=== PATIENT | female | born 1945 | race Caucasian/White ===

== ENCOUNTER 2023-11-08 22:12 | Inpatient (IN) | payer MEDICARE, BC, SELFPAY ==
[2023-11-08 19:35] VITALS: BP 164/76
--- NOTE | 2023-11-08 20:09 | ED.GENMED ---
History of Present Illness
General
Chief Complaint: Bowel Problem
Source: patient
Exam Limitations: none
Time Seen by Provider: 11/08/23 19:48
History of Present Illness
History of Present Illness:
This is a 78 year old female that comes in with c/o early bowel obstruction. States that she has had them before and that this moves very fast. States that she started with discomfort around 3pm today. States that she has been nauseated. Patient
dose see the GI specialist here. Denies any fever, chills, chest pain, SOB, vomiting, headache, dizziness, urinary burning.
Past History
Past History
ED Past Medical History: Other (Bowel obstruction, Hemorrhoids, Autoimmune issues, Polymyopathy,)
ED Past Surgical History: Bowel resection (Total proctocolectomy with Ileostomy), Gynecological (left duct incision (patient states that it was not a breast reduction and wants this removed from her chart)), Tonsilectomy (And adenoids) and Other
(Left upper lobectomy, Oral surgery)
Social History
Tobacco: Former smoker
Alcohol: None
Personal: Single
Living: with family
Review of Systems
Review of Systems
All Other Systems: ROS reviewed and negative except as documented in HPI and ROS
Constitutional: Reports no symptoms; Denies fever or chills
EENT: Reports no symptoms
Respiratory: Reports no symptoms; Denies cough or trouble breathing
Cardiac: Reports no symptoms; Denies chest pain
ABD/GI: Reports abdominal pain, nausea and other (Ileostomy); Denies vomiting
: Reports no symptoms; Denies dysuria, frequency or urgency
Musculoskeletal: Reports no symptoms
Skin: Reports no symptoms
Neurological: Reports no symptoms; Denies dizzy or headache
Psychiatric: Reports no symptoms
Phy Exam
General Physical Exam
General Presentation: mild distress
General age: appears stated age
General Skin: warm and dry
General Habitus: elderly
General Mental: alert
General Hydration: dry mucous membranes
ENT Exam
ENT Exam: TM's normal, pharynx normal and neck supple
Eye Exam
Eye Exam: EOMI
Cardiovascular Exam
Cardiovascular Exam: regular rate/rhythm, no edema, no murmur and normal peripheral pulses
Pulmonary Exam
Pulmonary Exam: lungs clear, no respiratory distress, no rales, chest non tender, no crackles, no rhonchi, no wheezing and no cough
Gastrointestinal Exam
Gastrointestinal Exam: soft, no organomegaly, no pulsatile mass, non distended, tender (slight upper abd tenderness. ) and other (Hypoactive bowel sounds)
External Findings: ileostomy (with stool noted)
Musculoskeletal Exam
Musculoskeletal Exam: full ROM and no edema
Skin Exam
Skin Exam: normal color, warm/dry, no rash and no petechia
Psychiatric Exam
Psychiatric Exam: normal mood/affect
Course
Orders/Labs/Results
Orders:
Orders
11/08/23 20:08
0.9% Sodium Chloride 1000 ml [Nss] 1,000 ml IV BOLUS
Chest (PA) Obstruct Series [CR Obstruct Series W/pa Chest] Urgent
Comment: hISTORY OF BOWEL OBSTRUCTIONS
Reason For Exam: ABD PAIN
11/08/23 20:14
Complete Blood Count/With Diff Urgent
Comprehensive Metabolic Panel Urgent
Lactic Acid Urgent
Ondansetron Injectable [Zofran] 4 mg IV NOW STA
11/08/23 21:06
Add On- LAB Urgent
Tests Added?: Lipase
Pantoprazole [Protonix IV] 40 mg IV NOW STA
Sucralfate Suspension [Carafate Suspension] 1 gm PO NOW STA
Abnormal Lab Results
11/08/23
20:14
WBC 12.6 H 10^3/uL
(4.8-10.8)
RBC 4.19 L 10^6/uL
(4.20-5.40)
Hct 35.6 L %
(37.0-47.0)
Absolute Neuts (auto) 10.8 H 10^3/uL
(1.4-6.5)
Absolute Lymphs (auto) 1.1 L 10^3/uL
(1.2-3.4)
Neutrophils % 86.1 H %
(42.2-75.2)
Lymphocytes % 8.8 L %
(20.5-51.1)
Sodium 129 L mmol/L
(135-145)
Chloride 95 L mmol/L
(98-107)
Glucose 128 H mg/dl
(70-99)
11/08/23 20:14
11/08/23 20:14
Leukocytosis, Hyponatremia. chloride low. glucose nonfasting. Lactic acid normal at 1.2
Vital Signs
Initial and Last Documented VS:
Initial Vital Signs
Temp Pulse Resp BP Pulse Ox
98.8 F 90 24 164/76 100
11/08/23 19:35 11/08/23 19:35 11/08/23 19:35 11/08/23 19:35 11/08/23 19:35
Last Documented Vital Signs
Temp Pulse Resp BP Pulse Ox
98.8 F 90 24 164/76 100
11/08/23 19:35 11/08/23 19:35 11/08/23 19:35 11/08/23 19:35 11/08/23 19:35
MDM/Problems Addressed
Differential Diagnosis Includes:
Bowel obstruction
MDM/Problems Addressed:
This is a 78 year old female that comes in with c/o early bowel obstruction. states that this started today around 3pm. States that she has a GI specialist here and that he knows her very well and would like him notified. Explained to patient that
he may not be on duty. She would like him notified as some point.
Will check labs. Obstruction series.
back into see patient. Explained that her X-ray shows an Ileus but at this time there is no obstruction. Patient has inducated that she becomes obstructed very fast. will admit. Hospitalist notified.
Chronic conditions affecting care: Previous abdomnial surgery
Acute Exacerbation and/or Progression of Chronic Illness: Previous abdomnial surgery
*Radiology
Radiology exam reviewed: radiology read reviewed (No acute cardiopulmonary process. Findings suggesting ileus, less likely developing small bowel obstruction. )
*Pulse Oximetry
Patient hypoxic: no
*EKG
Interpreted by ED Provider?: NA
Rate: EKG- N/A
*Reconstructive Surgeon Interpretation
Rate: Reconstructive Surgeon- N/A
*Critical Care Note
Total Time (30-74mins, 75-104mins- exclusive of procedures): Not Applicable
ED Attending Note
-
Portions of this chart may have been created with voice recognition software.� Occasional wrong word or��sound alike� substitutions may have occurred due to the inherent limitations of voice recognition software.
Discharge Plan
Departure
Patient Disposition: Admit
Date of Disposition: 11/08/23
Time of Disposition: 21:12
Presentation/result/management discussed w/ accepting MD/DO: Hospitalist
Patient with high blood pressure during this ER visit?: Yes
Condition: Good
Covid-19: Not Applicable
Discharge Problem:
Abdominal pain, Ileus
Referrals:
Dakotah Hines MD [Family Provider] -
Interventions
Interventions:
*Risk Screen - Suicide Last Done: 11/08/23 19:35
*General Assessment Last Done: 11/08/23 20:16
*Neglect/Abuse Screening Last Done: 11/08/23 19:35
ED- Fall Risk Assessment Last Done: 11/08/23 21:04
*ED COVID-19 Vaccine History Last Done: 11/08/23 20:16
RH-Zosqkh-Oskptbshkt Assessment Last Done: 11/08/23 21:03
Discharge Date and Time
Print Language: PERSIAN
[2023-11-08 20:15] VITALS: BMI 22.9
[2023-11-08 20:23] LABS: % Basophils 0.2 % (0-2); % Eosinophils 0.5 % (0-6); % Immature Granulocytes 0.3 % (0-0.5); % Lymphocytes 8.8 % (20.5-51.1); % Monocytes 4.1 % (1.7-9.3); % Neutrophils 86.1 % (42.2-75.2); Absolute Eosinophils 0.1 10^3/uL (0-0.7); Absolute Lymphocytes 1.1 10^3/uL (1.2-3.4); Absolute Monocytes 0.5 10^3/uL (0.1-0.6); Absolute Neutrophils 10.8 10^3/uL (1.4-6.5); Hematocrit 35.6 % (37.0-47.0); Hemoglobin 12.6 g/dL (12.0-16.0); Mean Corp Hgb Conc. 35.4 g/dL (33.0-37.0); Mean Corpuscular Hgb 30.1 pg (27.0-31.0); Mean Platelet Volume 9.8 fL (7.4-10.4); Nucleated Red Blood Cells % 0 %; Platelet Count 250 10^3/uL (130-400); Red Blood Cell Count 4.19 10^6/uL (4.20-5.40); Red Cell Dist. Width 13.1 % (11.5-14.5); White Blood Cell Count 12.6 10^3/uL (4.8-10.8)
[2023-11-08 20:37] LABS: ALT (SGPT) 21 U/L (0-35); AST (SGOT) 28 U/L (14-36); Albumin 4.1 g/dl (3.5-5.0); Alkaline Phosphatase 99 U/L (38-126); Blood Urea Nitrogen 15 mg/dl (7-17); Calcium 10.1 mg/dl (8.4-10.2); Carbon Dioxide 27 mmol/L (22-30); Chloride 95 mmol/L (98-107); Estimated Creatinine Clearance 56 ml/min; Glucose 128 mg/dl (70-99); Lactic Acid 1.2 mmol/L (0.7-2.0); Potassium 3.8 mmol/L (3.5-5.1); Sodium 129 mmol/L (135-145); Total Bilirubin 0.6 mg/dl (0.2-1.3); Total Protein 7.6 g/dl (6.3-8.2); eGFR > 60.00
[2023-11-08] MEDS: ZOFRAN 4 MG IV (20:50)
[2023-11-08] MEDS: NSS 1000 IV (20:50)
[2023-11-08] MEDS: CARAFATE SUSPENSION 1 GM PO (21:09)
[2023-11-08] MEDS: PROTONIX IV 40 MG IV (21:09)
[2023-11-08 21:15] VITALS: BP 148/71
--- NOTE | 2023-11-08 21:24 | HPS.HSE ---
Family Physician
-
Family Physician: Dakotah Hines
Chief Complaint
-
Abdominal pain
History of Present Illness
78-year-old female complaining of abdominal discomfort starting at 3 PM today along with nausea. She has had previous history of bowel obstructions requiring colectomy with ileostomy in 1984 secondary to ulcerative colitis surgery was at [facility]
General. She reports this feels the same as her prior bowel obstructions she reports over 100. She believes that cooked yellow or orange carrots, squash or beets tend to cause her bowel obstruction. Patient reports she feels very anxious when
this happens and is amendable to IV Ativan. She denies headache, sore throat, fever, chills, chest pain, shortness breath, cough, vomiting, diarrhea, urinary symptoms. She has past medical history of bowel obstruction, hemorrhoids, former smoker,
Belgica's thyroiditis
Medical History
Past Medical History
Past Medical History: Reports Other
Additional Past Medical History:
bowel obstruction patient reports over 100 times
hemorrhoids
former smoker
Belgica's thyroiditis
History ulcerative colitis 1984
Past Surgical History: Reports Other
Additional Past Surgical History:
Total proctocolectomy with ileostomy 1984 secondary to ulcerative colitis at [facility]
Tonsillectomy/adenoidectomy
Left upper lobectomy
Social History
Tobacco: Former Smoker
Alcohol: None
Personal: Other (person Chris present with patient unclear relationship to patient as she will not state)
Family History
Family History: Other (Maternal great grandfather ulcerative colitis, paternal cousins ulcerative colitis)
Allergies / Home Medications
Allergies reflects when Allergies were last updated in [facility].
Home Medications with original date entered in [facility]
Allergy/Medication List:
Allergies
Allergy/AdvReac Type Severity Reaction Status Date / Time
Iodinated Contrast Media Allergy Unknown Verified 11/08/23 19:43
latex Allergy Unknown Verified 11/08/23 19:43
levofloxacin [From Levaquin] Allergy Unknown Verified 11/08/23 19:43
nickel Allergy Unknown Verified 11/08/23 19:43
Sulfa (Sulfonamide Allergy Unknown Verified 11/08/23 19:43
Antibiotics)
sulfamethoxazole Allergy Unknown Verified 11/08/23 19:43
[From Bactrim]
trimethoprim [From Bactrim] Allergy Unknown Verified 11/08/23 19:43
Home Medications
CoQ-10 1 tab PO DAILY 11/08/23
Mylanta 1 dose PO PRN PRN acid reflux 11/08/23
Tums 1 tab PO PRN PRN acid reflux 11/08/23
Vitamin D3 4,000 mcg PO DAILY 11/08/23
ascorbic acid (vitamin C) 500 mg tablet (Vitamin C) 500 mg PO DAILY 11/08/23
levothyroxine 88 mcg tablet (Synthroid) 68.5 mcg PO DAILY 11/08/23
omega-3 fatty acids 1 cap PO DAILY 11/08/23
vitamin B complex 1 tab PO DAILY 11/08/23
Review of Systems
-
History Source: Patient and Family (Person Chris at bedside patient will not state relationship)
A 12 point ROS was completed and negative except as noted: Yes
Constitutional: Denies Fever or Chills
EENT: Denies Sore Throat or Runny Nose
Respiratory: Denies Cough or Trouble Breathing
Cardiac: Denies Chest Pain
Abdomen/GI: Reports Abdominal Pain, Nausea and Other (Brown liquid stool in ostomy pouch); Denies Vomiting
: Denies Dysuria, Flank Pain or Urgency
Musculoskeletal: Denies Joint Pain or Edema
Skin: Denies Itching or Rash
Neurological: Denies Dizzy or Headache
Endocrine: Reports No Symptoms
Hematologic/Lymphatic: Reports No Symptoms
Psych: Reports Anxiety
Physical Exam
Vital Signs
Vital Signs
Temp Pulse Resp BP Pulse Ox
98.8 F 72 18 148/71 98
11/08/23 19:35 11/08/23 21:15 11/08/23 21:15 11/08/23 21:15 11/08/23 21:15
Physical Exam
General: Pain and Other (Anxious); No Fever or Chills
HEENT: NormoCephalic, Anicteric, Moist mucous membranes, PERRLA, [place] Conjunctivae and No Ptosis
Respiratory: Clear; No Wheezes, Rales or Rhonchi
Cardiac: S1/S2 and Regular Rhythm; No Murmur, Rub, Gallop or Peripheral Edema
GI: Soft, Normal Bowel Sounds, Tender (Epigastric area), No Hepatosplenomegaly and Other (Ileostomy bag with liquid brown stool present)
Rectal: Deferred by Provider
Genito-urinary: Deferred by me
Musculoskeletal: No Clubbing, No Cyanosis and No Edema
Skin: Warm and Dry; No Rash or Jaundice
Neuro: AO x 3, No Motor Deficits, Nonfocal/grossly intact, Cranial Nerves Intact and No Sensory Deficits; No Slurred Speech, Facial Droop or Tremors
Psych: Anxious
Laboratory Results
-
11/08/23 20:14
11/08/23 20:14
Laboratory Results
Lactic Acid 1.2 mmol/L (0.7-2.0) 11/08/23 20:14
Total Bilirubin 0.6 mg/dl (0.2-1.3) 11/08/23 20:14
AST 28 U/L (14-36) 11/08/23 20:14
ALT 21 U/L (0-35) 11/08/23 20:14
Alkaline Phosphatase 99 U/L (38-126) 11/08/23 20:14
Data Reviewed
-
Diagnostic Radiology: Report Reviewed by me
Lab Data: Labs Reviewed by me
Impression/Plan
-
Impression/plan:
Admit to [facility]
#Abdominal pain with ileus
#Hx SBO/Total proctocolectomy with ileostomy
WBC 12.6 with left shift, afebrile, 90 8.8F
-Monitor bowel movements
-N.p.o.
-IV NSS
-IV Zofran as needed
-KUB in a.m.
-Consult GI per patient demand/request
-Consult general surgery
Follow CBC, CMP
#Acute anxiety
IV Ativan 0.5 mg now as needed every 8 hours
Obstruction series:
Findings suggesting ileus less likely developing SBO
No acute cardiopulmonary process
#Hyponatremia hypovolemic
NA 129
Check TSH with free T4
IV NSS
#Hypothyroidism
#History of Belgica's thyroiditis
Check TSH with free T4 reflex
DVT prophylaxis
SCDs
Full code
[2023-11-08 21:45] LABS: Lipase 59 U/L (23-300); Magnesium 1.8 mg/dl (1.6-2.3)
--- NOTE | 2023-11-08 21:50 | W.PN.UPDATE ---
Update Note
Progress Note Update
This note serves as an addendum to the H&P by industrial machine operator RUFINA Lilly MERCADO
HPI
78F former smoker HX bowel obstructions requiring colectomy with ileostomy., HX autoimmune disease, polymyopathy, Belgica's thyroiditis seen at ER for evalaution of ing of abdominal discomfort
- acute onset at 3 PM , associated with nausea.
- feels the same as her prior bowel obstructions. S
- denies vomiting
- HX BWO about 100 episodes
- HX UC
- very vague about ileostomy output - currently liquid bround output
Hemodynamically stable
PE
Gen: anxious
HEENT: anicteric
Neck: supple
Lungs: CTA
Cor: RRR S1 S2
Abdomen: Ileostomy , currently liquid brown output, hyperactibve BS
LINER MACHINE OPERATOR HELPER: anxious
MS: no edema
Psych: anxious , fine tremors
Data;
WCC 12.6
Na 129
Cl 95
eGFR > 60
Obstruction series:
Findings suggesting ileus less likely developing SBO
No acute cardiopulmonary process
ASSESSMENT & PLAN
Pending Rx reconciliation
Ileus with evolving recurrent SBO
HX adhesive etiology
Asso. abdominal pain and nausea . No emesis
HX SBO/Total proctocolectomy with [place] [facility]
HX BWO about 100 episodes
HX UC
- she is very vague about illeiostomy output - currently liquid bround output
- NPO and IVF
- anti emetics
- Flat plate AXR in AM
- GS and GI consult
Hyponatremia, Hypochloremia suspect dehydration
- IV NS
- Check TSH with free T4 reflex, urine NA, Ur Os, Sr Osm
- Trend Na in AM
DVT Px: SCD
Code: Full
IP MS
[2023-11-08] MEDS: NSS (PRESERVATIVE FREE) 0.25 ML IV ×2 (22:16→23:56)
[2023-11-08] MEDS: ATIVAN 0.5 MG IV ×2 (22:16→23:51)
[2023-11-08 22:53] LABS: TSH Reflex To Free T4 0.87 uIU/ml (0.47-4.68)
[2023-11-08 23:00] VITALS: BP 132/65; BMI 23.3
--- NOTE | 2023-11-08 23:50 | PTCARENOTE ---
Pt received from ED at 2245. Pt AAOX3, VSS, and able to walk into room. Pt receptive to room and callbell, but forgetful. Will continue with current plan of care.
[2023-11-08] MEDS: PEPCID 20 MG IV (23:57)
[2023-11-08] MEDS: NSS (PRESERVATIVE FREE) 8 ML IV (23:58)
[2023-11-09] MEDS: NSS 1000 IV ×2 (00:01→08:59)
[2023-11-09] MEDS: ZOFRAN 4 MG IV ×3 (00:09→16:33)
--- NOTE | 2023-11-09 02:45 | PTCARENOTE ---
Pt forgetful, bed alarm applied. Pt threw up on self X2, bed bath given. Pt uncooperative with bed bath and linen change. Pt refused changing of undergarments. Pt offered mesh underwear, pt stated she is allergic and wants to be left alone. Pt
educated on the importance of being clean to prevent skin breakdown. Will continue with current plan.
--- NOTE | 2023-11-09 03:30 | PTCARENOTE ---
Pt vomiting green bile despite IV zofran and compazine. Elysia ARNOLD notified. This nurse asked pt if she would be okay with getting a NGT, pt refused NGT. Pt stated she has never needed that and doesn't need it now. Pt educated on the
benefit of a NGT. Will continue with current plan.
[2023-11-09] MEDS: COMPAZINE 5 MG IV ×2 (03:45→22:36)
[2023-11-09] MEDS: ATIVAN 0.5 MG IV (06:05)
[2023-11-09] MEDS: NSS (PRESERVATIVE FREE) 0.25 ML IV (06:06)
[2023-11-09] MEDS: SYNTHROID PO (06:09)
[2023-11-09 07:20] VITALS: BP 116/59
--- NOTE | 2023-11-09 09:21 | W.PN.HOSP.TC ---
Today's Communication/Plan
-
Start clear liquid diet. IV fluids. GI and surgery eval
Assessment / Plan
Assessment / Plan
Physical exam:
General: Well Developed, Well Nourished and No Apparent Distress
HEENT: Normocephalic, Atraumatic and Moist Mucous Membranes
Respiratory: Clear to Auscultation; Negative Wheezes, Rales or Rhonchi
Cardiac: Regular Rhythm and S1/S2
GI: Soft, bowel sounds present, mild tender, ostomy in place, and Nondistended
Musculoskeletal: No Clubbing, No Cyanosis and No Edema
Neuro: Awake, Alert and Oriented, no neuro-deficits
Psych: Calm
A/P:
Ileus versus small bowel obstruction/proctocolectomy with ileostomy:
Started clear liquid diet per surgery
Surgery consult not uploaded yet
Continue IV fluids but decrease rate
GI consulted (follows up with Dr. Espinosa as outpatient)-->awaiting input
Seen follow-up x-ray
PT OT eval
Leukocytosis:
Likely reactive
Continue to monitor trend
Hyponatremia:
Likely hypovolemic
NA 129--> 133
Continue to monitor
Hypothyroidism:
Continue thyroid replacement
TSH 0.87
Anxiety:
Started on scheduled/standing doses of IV Ativan. Discontinue IV Ativan.
Can add low-dose Xanax as needed
DVT prophylaxis:
SCDs
CODE STATUS:
Full code
Anticipated Discharge: 24 - 48 hours
Subjective/Interval History
-
Date of Service: November 09, 2023
Patient denies abdominal pain. Feels nauseous. Afebrile
Objective Data
-
Labs:
Laboratory Results
11/09/23
06:00
WBC Pending
Hgb Pending
Hct Pending
Plt Count Pending
Sodium Pending
Potassium Pending
Chloride Pending
Carbon Dioxide Pending
BUN Pending
Creatinine Pending
Glucose Pending
Calcium Pending
Total Bilirubin Pending
AST Pending
ALT Pending
Alkaline Phosphatase Pending
Vital Signs:
Vital Signs
Temp Pulse Resp BP Pulse Ox
99 F 81 16 116/59 97
11/09/23 07:20 11/09/23 07:20 11/09/23 07:20 11/09/23 07:20 11/09/23 07:20
I&O
11/08/23 11/09/23 11/10/23
06:59 06:59 06:59
Intake Total 500 / 500
Balance 500 / 500
[2023-11-09 11:47] LABS: % Basophils 0.2 % (0-2); % Immature Granulocytes 0.1 % (0-0.5); % Lymphocytes 2.9 % (20.5-51.1); % Monocytes 5.5 % (1.7-9.3); % Neutrophils 91.3 % (42.2-75.2); Absolute Lymphocytes 0.4 10^3/uL (1.2-3.4); Absolute Monocytes 0.8 10^3/uL (0.1-0.6); Absolute Neutrophils 13.1 10^3/uL (1.4-6.5); Hematocrit 35.8 % (37.0-47.0); Hemoglobin 12.5 g/dL (12.0-16.0); Mean Corp Hgb Conc. 34.9 g/dL (33.0-37.0); Mean Corpuscular Volume 85.9 fL (81.0-99.0); Mean Platelet Volume 10.1 fL (7.4-10.4); Nucleated Red Blood Cells % 0 %; Platelet Count 245 10^3/uL (130-400); Red Blood Cell Count 4.17 10^6/uL (4.20-5.40); Red Cell Dist. Width 13.2 % (11.5-14.5); White Blood Cell Count 14.3 10^3/uL (4.8-10.8)
[2023-11-09 12:05] LABS: ALT (SGPT) 18 U/L (0-35); AST (SGOT) 24 U/L (14-36); Albumin 3.6 g/dl (3.5-5.0); Alkaline Phosphatase 85 U/L (38-126); Blood Urea Nitrogen 13 mg/dl (7-17); Calcium 9.4 mg/dl (8.4-10.2); Carbon Dioxide 20 mmol/L (22-30); Chloride 103 mmol/L (98-107); Estimated Creatinine Clearance 54 ml/min; Glucose 123 mg/dl (70-99); Potassium 3.8 mmol/L (3.5-5.1); Sodium 133 mmol/L (135-145); Total Bilirubin 1.1 mg/dl (0.2-1.3); Total Protein 6.8 g/dl (6.3-8.2); eGFR > 60.00
[2023-11-09 12:37] VITALS: PULSE 83; O2SAT 100
[2023-11-09 12:45] VITALS: BP 144/70; PULSE 77; O2SAT 100
--- NOTE | 2023-11-09 13:05 | CON.GS ---
Medical History
-
Chief Complaint: abdominal pain
History of Present Illness:
Ms Thorne is a 78 yo female with a h/o of UC with colectomy and ileostomy in 1984 with reported history of multiple bowel obstructions previously. Unclear how many of these she has needed surgery for. She reports that she has had 100 SBO's and
usually goes to [facility] for management and would like to go there if surgery is required. Yesterday, she notes that she ate some carrots and a few hours after began having pain in her abdomen similar to prior obstructions. She developed nausea with
vomiting causing her to present to the ED. She notes some intermittent nausea and some episodes of vomiting earlier today but feeling a little better. There is some flatus/stool noted in her ostomy appliance with a pink and viable stoma present. She
denies active pain but does note discomfort which comes and goes. Non-tender on exam but with some distention noted.
Past Medical History
Past Medical History: Hyperthyroidism (hashimotos) and Other (UC, SBO x100 (reported))
Past Surgical History: Bowel Resection (Colectomy with ileostomy creation 1984, ?ex lap for DEBORAH previously) and Tonsilectomy
Social History
Tobacco: Former Smoker
Alcohol: None
Family History
Family History: Reviewed & Not Pertinent
Allergies / Home Medications
Allergy/AdvReac Type Severity Reaction Status Date / Time
Iodinated Contrast Media Allergy Unknown Verified 11/08/23 19:43
latex Allergy Unknown Verified 11/08/23 19:43
levofloxacin [From Levaquin] Allergy Unknown Verified 11/08/23 19:43
nickel Allergy Unknown Verified 11/08/23 19:43
Sulfa (Sulfonamide Allergy Unknown Verified 11/08/23 19:43
Antibiotics)
sulfamethoxazole Allergy Unknown Verified 11/08/23 19:43
[From Bactrim]
trimethoprim [From Bactrim] Allergy Unknown Verified 11/08/23 19:43
�Medication �Instructions �Recorded �Confirmed �Type
CoQ-10 1 tab PO DAILY Supplement 11/08/23 11/08/23 History
Mylanta 1 dose PO PRN PRN acid reflux 11/08/23 11/08/23 History
Tums 1 tab PO PRN PRN acid reflux 11/08/23 11/08/23 History
Vitamin D3 4,000 mcg PO DAILY Supplement 11/08/23 11/08/23 History
ascorbic acid (vitamin C) 500 mg 500 mg PO DAILY Supplement 11/08/23 11/08/23 History
tablet (Vitamin C)
levothyroxine 88 mcg tablet 68.5 mcg PO DAILY Thyroid 11/08/23 11/08/23 History
(Synthroid)
omega-3 fatty acids 1 cap PO DAILY 11/08/23 11/08/23 History
vitamin B complex 1 tab PO DAILY Supplement 11/08/23 11/08/23 History
Review of Systems
-
History Source: Patient
All other systems: Negative unless noted
A 10 point review of systems was completed, and was negative except as per HPI.
Physical Exam
Vital Signs
Temp Pulse Resp BP Pulse Ox
99 F 81 16 116/59 97
11/09/23 07:20 11/09/23 07:20 11/09/23 07:20 11/09/23 07:20 11/09/23 07:20
11/08/23 11/09/23 11/10/23
06:59 06:59 06:59
Actual Weight 52.345 kg
Body Mass Index (BMI) 23.3
Lab Results
11/09/23 10:47
11/09/23 10:47
WBC 14.3 10^3/uL (4.8-10.8) H 11/09/23 10:47
Hgb 12.5 g/dL (12.0-16.0) 11/09/23 10:47
Hct 35.8 % (37.0-47.0) L 11/09/23 10:47
Plt Count 245 10^3/uL (130-400) 11/09/23 10:47
Abs Immat Gran (auto) 0.0 10^3/uL (0-0.05) 11/09/23 10:47
Neutrophils % 91.3 % (42.2-75.2) H 11/09/23 10:47
Physical Exam
General: Well Developed and Well Nourished
HEENT: Normocephalic and Moist Mucous Membranes
Respiratory: Non Labored Respirations
GI: Soft, Non Tender, Distended (mild) and Other (Stoma pink/viable with small amount of stool and some air in appliance)
Skin: Warm and Dry
Neuro: Awake, Alert and AO x 3
Psych: Calm
Assessment / Plan
-
78 yo female with a h/o of UC with colectomy and ileostomy in 1984 with reported history of multiple bowel obstructions previously. Unclear how many of these she has needed surgery for. She reports that she has had 100 SBO's. Yesterday, she
developed n/v/abdominal pain similar to prior episodes causing her to present for evaluation. She reports that she is feeling a little better now and would like to try clears. Abdominal XR consistent with SBO. AFVSS. Some mild leukocytosis noted.
--Recommend CT with PO contrast, however, patient refusing this test at this time
--OK for clear liquids as tolerated
--If N/V persists, would recommend NGT
--IVF until tolerating clears
--Trend labs
--Patient would like to be transferred to [facility] if she requires surgery. At this time would continue to follow for improvement with medical measures
[2023-11-09 15:09] VITALS: BP 124/64
--- NOTE | 2023-11-09 15:47 | CON.GI ---
Consultation
-
Date/Time Consultation Requested: 11/08/2023
Date/Time Consultation Performed: 11/09/2023
Requesting Provider: Hospitalist
Performing Provider: Nitza GARZA
Reason for Consultation: Ileus
Medical History
Chief Complaint / HPI
Chief Complaint: Abdominal pain
History of Present Illness:
78-year-old female with history of UC s/p colectomy and ileostomy in 1984, multiple small bowel obstruction in the past -managed conservatively in general in the past-follows up with Dr. Jesús KAY admitted with abdominal pain after eating carrots
yesterday associated with nausea/vomiting. She is overall feeling better with some abdominal discomfort and nausea. Continues to have ostomy output.
Past Medical History
Past Medical History: Other (Belgica's, UC, SBO)
Past Surgical History: Other (Colectomy with ileostomy)
Social History
Tobacco: Former Smoker
Alcohol: None
Allergies / Home Medications
Allergy/AdvReac Type Severity Reaction Status Date / Time
Iodinated Contrast Media Allergy Unknown Verified 11/08/23 19:43
latex Allergy Unknown Verified 11/08/23 19:43
levofloxacin [From Levaquin] Allergy Unknown Verified 11/08/23 19:43
nickel Allergy Unknown Verified 11/08/23 19:43
Sulfa (Sulfonamide Allergy Unknown Verified 11/08/23 19:43
Antibiotics)
sulfamethoxazole Allergy Unknown Verified 11/08/23 19:43
[From Bactrim]
trimethoprim [From Bactrim] Allergy Unknown Verified 11/08/23 19:43
�Medication �Instructions �Recorded
CoQ-10 1 tab PO DAILY Supplement 11/08/23
Mylanta 1 dose PO PRN PRN acid reflux 11/08/23
Tums 1 tab PO PRN PRN acid reflux 11/08/23
Vitamin D3 4,000 mcg PO DAILY Supplement 11/08/23
ascorbic acid (vitamin C) 500 mg 500 mg PO DAILY Supplement 11/08/23
tablet (Vitamin C)
levothyroxine 88 mcg tablet 68.5 mcg PO DAILY Thyroid 11/08/23
(Synthroid)
omega-3 fatty acids 1 cap PO DAILY 11/08/23
vitamin B complex 1 tab PO DAILY Supplement 11/08/23
Review of Systems
-
All other systems: A 12 pt ROS was Negative except as stated above in HPI
Vital Signs
Temp Pulse Resp BP Pulse Ox
98.7 F 86 16 124/64 97
11/09/23 15:09 11/09/23 15:09 11/09/23 15:09 11/09/23 15:09 11/09/23 15:09
Physical Exam
Exam
General: No Apparent Distress
Respiratory: Clear
Cardiac: S1/S2
GI: Soft, Non Tender, Non Distended and Other (Ostomy bag - brown stool noted)
Results
WBC 14.3 10^3/uL (4.8-10.8) H 11/09/23 10:47
Hgb 12.5 g/dL (12.0-16.0) 11/09/23 10:47
Hct 35.8 % (37.0-47.0) L 11/09/23 10:47
MCV 85.9 fL (81.0-99.0) 11/09/23 10:47
Plt Count 245 10^3/uL (130-400) 11/09/23 10:47
Absolute Neuts (auto) 13.1 10^3/uL (1.4-6.5) H 11/09/23 10:47
Sodium 133 mmol/L (135-145) L 11/09/23 10:47
Potassium 3.8 mmol/L (3.5-5.1) 11/09/23 10:47
Chloride 103 mmol/L (98-107) 11/09/23 10:47
Carbon Dioxide 20 mmol/L (22-30) L 11/09/23 10:47
BUN 13 mg/dl (7-17) 11/09/23 10:47
Creatinine 0.6 mg/dL (0.6-1.0) 11/09/23 10:47
Calcium 9.4 mg/dl (8.4-10.2) 11/09/23 10:47
Total Bilirubin 1.1 mg/dl (0.2-1.3) 11/09/23 10:47
AST 24 U/L (14-36) 11/09/23 10:47
ALT 18 U/L (0-35) 11/09/23 10:47
Alkaline Phosphatase 85 U/L (38-126) 11/09/23 10:47
Lipase 59 U/L (23-300) 11/08/23 20:14
Diagnostic Image Results:
Prior GI Procedures:
EGD: Unable to recall
Colonoscopy: History of colectomy with end ileostomy 1984
Assessment / Plan
-
78-year-old female with history of UC status post colectomy with end ileostomy in 1984 with recurrent small bowel obstruction admitted with abdominal pain/nausea/vomiting. Abdominal x-ray performed in ED suggestive of ileus versus partial small
bowel obstruction (allergy to IV contrast). Repeat X ray this am -progression of ileus/developing small bowel obstruction
-- Recurrent SBO
-- History of UC s/p total colectomy with end ileostomy
plan
NPO
Patient refusing CT abdomen with oral contrast recommended by surgery
Patient denies any emesis. Does not want NG tube.
Surgery on board. Continue to follow surgical recommendation
Patient would like to be transferred to [facility] if surgical intervention necessary
Follow-up with Dr. Espinosa on discharge. No further GI input. will s/o
Total Time Spent with Patient (in minutes): 55
-
-
Thank you for consultation and allowing me to participate in the patient's care. Please call the bonus clerk GI physician during the after hours with any questions or concerns.
--- NOTE | 2023-11-09 15:51 | CM ---
Patient seen bedside.
IA completed.
Patient lives in a 2nd floor apartment, no elevator.
No assistive devices.
Independent prior to admission.
Hx ileostomy.
Patient has a RORO- Janie Helm
PCP; Dr Hines
Pharmacy: [facility]
Plan: home no needs anticipated.
[2023-11-09] MEDS: XANAX 0.25 MG PO (16:34)
[2023-11-09 23:07] VITALS: BP 139/72
[2023-11-10] MEDS: NSS 1000 IV ×3 (02:49→23:18)
[2023-11-10 07:00] VITALS: BP 155/85
--- NOTE | 2023-11-10 08:11 | W.PN.HOSP.TC ---
Addendum entered and electronically signed by Igor Dennis MD 11/10/23 15:02:
Chest x-ray consistent with pneumonia. Start IV antibiotics. Patient requests pulm consult.
I was able to reach Janie Mireles who is listed as her power of attorney lawyer and she will also try to talk to her about current plans and possible CT abd. Will discuss with patient.
Addendum entered and electronically signed by Igor Dennis MD 11/10/23 13:21:
Not Dr Moulton rather discused Dr Altamirano from liver services.
Original Note:
Today's Communication/Plan
-
IV fluids. Chest x-ray. Possible CT scan of the abdomen.
Assessment / Plan
Assessment / Plan
Physical exam:
General: Acute on chronically ill
HEENT: Normocephalic, Atraumatic and Moist Mucous Membranes
Respiratory: Clear to Auscultation; Negative Wheezes, Rales or Rhonchi
Cardiac: Regular Rhythm and S1/S2
GI: Soft, bowel sounds present but relatively hypoactive, mild tender, ostomy in place, and Nondistended
Musculoskeletal: No Clubbing, No Cyanosis and No Edema
Neuro: Awake, Alert and Oriented, no neuro-deficits
Psych: Calm
A/P:
Ileus versus small bowel obstruction/proctocolectomy with ileostomy:
Started clear liquid diet per surgery but it appears that they are signing off
Continue IV fluids but decrease rate
GI consulted (follows up with Dr. Espinosa as outpatient)--> GI also signed off.
Seen follow-up x-ray
PT OT eval
I reached out to [facility] for possible transfer today. Discussed with Dr. Moulton-liver specialist who is following her and he recommended to discuss with other surgeons. I discussed with Dr. Vasquez, general surgeon who recommends to discuss with
colorectal surgery who is following her. I discussed with Dr. Hidalgo-and she does recommend to go ahead and do the CT scan with contrast otherwise that would be the same thing today with different transfer and also is not clear that she would
require surgery at the moment. Will discuss with patient again to see if further images can be completed.
Cough with sputum:
Rule out pneumonia
Check a chest x-ray PA and lateral
Check sputum culture
Hold off on antibiotics
Leukocytosis:
Likely reactive
Continue to monitor trend
Hyponatremia:
Likely hypovolemic
NA 129--> 133
Continue to monitor
Hypothyroidism:
Continue thyroid replacement
TSH 0.87
Anxiety:
Started on scheduled/standing doses of IV Ativan. Discontinue IV Ativan.
Can add low-dose Xanax as needed
DVT prophylaxis:
SCDs
CODE STATUS:
Full code
Total time spent on today's encounter was 52 minutes which included time spent in counseling the patient/family regarding diagnosis and treatment plan as listed above, goals of care, and symptom management. Case was discussed with nursing staff,
specialists, and care coordinators/case management. All labs and imaging personally reviewed by me. Remainder the time spent in detailed review of previous records, lab data, imaging, and other medical provider documentation.
Anticipated Discharge: > 48 hours
Subjective/Interval History
-
Date of Service: November 10, 2023
Patient appears to have some output from ostomy. She says she does not have appetite. Some abdominal discomfort. Complains of cough with sputum production.
Objective Data
-
Labs:
Laboratory Results
11/10/23
06:00
WBC Pending
Hgb Pending
Hct Pending
Plt Count Pending
Sodium Pending
Potassium Pending
Chloride Pending
Carbon Dioxide Pending
BUN Pending
Creatinine Pending
Glucose Pending
Calcium Pending
Vital Signs:
Vital Signs
Temp Pulse Resp BP Pulse Ox
100.1 F 109 14 155/85 94
11/10/23 07:00 11/10/23 07:00 11/10/23 07:00 11/10/23 07:00 11/10/23 07:00
I&O
11/09/23 11/10/23 11/11/23
06:59 06:59 06:59
Intake Total 500 / 500 660 / 660
Balance 500 / 500 660 / 660
[2023-11-10] MEDS: SYNTHROID 68.5 MCG PO (09:20)
[2023-11-10 11:33] LABS: Procalcitonin 0.41 ng/ml (0.0-0.25)
[2023-11-10 11:41] LABS: Hematocrit 37.4 % (37.0-47.0); Hemoglobin 12.9 g/dL (12.0-16.0); Mean Corp Hgb Conc. 34.5 g/dL (33.0-37.0); Mean Corpuscular Hgb 30.9 pg (27.0-31.0); Mean Corpuscular Volume 89.5 fL (81.0-99.0); Mean Platelet Volume 10.2 fL (7.4-10.4); Platelet Count 231 10^3/uL (130-400); Red Blood Cell Count 4.18 10^6/uL (4.20-5.40); Red Cell Dist. Width 13.2 % (11.5-14.5); White Blood Cell Count 11.7 10^3/uL (4.8-10.8)
[2023-11-10 11:43] LABS: Absolute Neutrophils -Man Diff 10.4 10^3/uL (1.4-6.5); Band Neutrophils 26 % (0-3); Lymphocytes 8 % (20-51); Monocytes 3 % (2-9); Segmented Neutrophils 63 % (42-75)
--- NOTE | 2023-11-10 11:43 | W.PN.UPDATE ---
Update Note
Progress Note Update
S/B: Went with Dr. Sanchez to evaluate patient this am. She states that if surgery is required, she will only have this done at [facility]. Discussed with patient that surgical team following here at in the setting of SBO to assist with care, dietary
advancements etc. Assured her that if surgery deemed necessary, transfer could be arranged as per her wishes. She notes concerns that surgery team would be billing for her care and asked that she not be evaluated by our service at all during her
course of stay. She refused abdominal exam and did not wish to discuss her symptoms or progress.
A: Surgery to sign off at patient request, please call if concerns questions or patient requesting surgical team to reevaluate.
R: Consider transfer to [facility] if patient does not improve
[2023-11-10 11:44] LABS: Platelets Checked Yes
[2023-11-10 11:45] LABS: Normal RBC Morphology Yes; Total Cells Counted 100
--- NOTE | 2023-11-10 12:03 | CM ---
Patient seen at bedside.
PT recommending home health.
Patient refusing procedures/tx.
PLAN: Discharge when stable. Possible transfer to [facility] if patient per surgery note.
[2023-11-10] MEDS: COMPAZINE 5 MG IV ×2 (12:10→23:42)
[2023-11-10] MEDS: TORADOL 15 MG IV (12:11)
[2023-11-10] MEDS: ZITHROMAX INFUSION 250 IV (14:53)
[2023-11-10 15:00] VITALS: BP 161/85
[2023-11-10 15:24] LABS: Blood Urea Nitrogen 18 mg/dl (7-17); Calcium 9.1 mg/dl (8.4-10.2); Carbon Dioxide 22 mmol/L (22-30); Chloride 101 mmol/L (98-107); Estimated Creatinine Clearance 47 ml/min; Glucose 167 mg/dl (70-99); Potassium 3.4 mmol/L (3.5-5.1); Sodium 135 mmol/L (135-145); eGFR > 60.00
[2023-11-10] MEDS: STERILE WATER FOR INJECTION 10 ML IV (16:23)
[2023-11-10] MEDS: ROCEPHIN 1000 MG IV (16:23)
[2023-11-10] MEDS: XANAX 0.25 MG PO (16:27)
--- NOTE | 2023-11-10 20:33 | W.PN.UPDATE ---
Update Note
Progress Note Update
Notified by RN that pt now refusing to take steroids ordered by attending to prep for ct abd tomorrow Has contrast allergy). Also refuses ct abd as ' she had had over [address] scans in her life and they cause cancer.'
Will update attending in am
--- NOTE | 2023-11-10 22:44 | PTCARENOTE ---
Pt is in for an abdominal and pelvis CT with contrast for tomorrow morning however the pt is allergic to iodine contrast so Dr. Dennis ordered for her to get steroids tonight. When this RN went to give them to her, the pt states that she is allergic
to all steroids (even though this isn't listed in her allergy chart) and that she is refusing to have the steroids and the CT. I informed the pt Dr. Dennis spoke with [facility] today and they were the ones that recommended the CT for her but she is still
refusing the steroids and says she would only have a chest CT without contrast. She states that 'she has had over 25 abdominal CTs in her life and that they cause cancer' and that 'the doctors can look at one of those.' SIGN WRITER LETTERER OR PAINTER aware of pt refusal of
medication and CT in am. Will continue to monitor
[2023-11-10 23:35] VITALS: BP 148/85
[2023-11-11 01:50] LABS: COVID-19 Antigen Negative (Negative)
--- NOTE | 2023-11-11 06:06 | PTCARENOTE ---
Pt complaining of SOB, pt with new rhonchi to bilateral upper lobes and only 90% on 2L nasal canula. RETAIL SALES REPRESENTATIVE notified and pt O2 increased to 4L nasal canula. RETAIL SALES REPRESENTATIVE ordered PRN nebulizer and covid swab. Covid swab resulted as negative. Pt more comfortable on
4L O2. Will continue to monitor
[2023-11-11 07:50] VITALS: BP 147/83
[2023-11-11] MEDS: SYNTHROID PO (08:10)
[2023-11-11] MEDS: TYLENOL 650 MG PO (08:10)
[2023-11-11 08:44] LABS: Blood Urea Nitrogen 20 mg/dl (7-17); Calcium 9.1 mg/dl (8.4-10.2); Carbon Dioxide 21 mmol/L (22-30); Chloride 101 mmol/L (98-107); Estimated Creatinine Clearance 47 ml/min; Glucose 123 mg/dl (70-99); Hematocrit 36.9 % (37.0-47.0); Hemoglobin 12.7 g/dL (12.0-16.0); Mean Corp Hgb Conc. 34.4 g/dL (33.0-37.0); Mean Corpuscular Hgb 30.8 pg (27.0-31.0); Mean Corpuscular Volume 89.6 fL (81.0-99.0); Mean Platelet Volume 10.2 fL (7.4-10.4); Platelet Count 267 10^3/uL (130-400); Potassium 3.5 mmol/L (3.5-5.1); Red Blood Cell Count 4.12 10^6/uL (4.20-5.40); Red Cell Dist. Width 13.2 % (11.5-14.5); Sodium 132 mmol/L (135-145); White Blood Cell Count 11.9 10^3/uL (4.8-10.8); eGFR > 60.00
[2023-11-11 08:45] LABS: Absolute Neutrophils -Man Diff 9.6 10^3/uL (1.4-6.5); Band Neutrophils 20 % (0-3); Lymphocytes 13 % (20-51); Monocytes 6 % (2-9); Normal RBC Morphology Yes; Platelets Checked Yes; Segmented Neutrophils 61 % (42-75); Total Cells Counted 100
--- NOTE | 2023-11-11 08:47 | W.PN.HOSP.TC ---
Addendum entered and electronically signed by Igor Dennis MD 11/11/23 18:30:
Stop IVF.
Original Note:
Today's Communication/Plan
-
IV antibiotics. Advance diet as tolerated.
Assessment / Plan
Assessment / Plan
Physical exam:
General: Acute on chronically ill
HEENT: Normocephalic, Atraumatic and Moist Mucous Membranes
Respiratory: Decreased breath sounds bilateral; Bilateral scattered wheezes, few fine crackles in the bases, No rhonchi
Cardiac: Regular Rhythm and S1/S2
GI: Soft, bowel sounds present, Non-tender today, ostomy in place, and Nondistended
Musculoskeletal: No Clubbing, No Cyanosis and No Edema
Neuro: Awake, Alert and Oriented, no neuro-deficits
Psych: Calm
A/P:
Ileus versus small bowel obstruction:
Started clear liquid diet per surgery but they signed off
I advanced to full liquid diet last evening and tolerated relatively well and she wants to advance diet today. Will advance to low residue diet today.
Refused CT scan again. Clinically she is doing much better so I think is reasonable to see how she does advancing her diet slowly as she has requested. If she were to have signs of obstruction again then CT scan of the abdomen and or transfer
needs to be discussed again.
Continue IV fluids but decrease rate
GI consulted and they signed off.
I reached out to [place] for possible transfer yesterday. Discussed with Dr. Altamirano-liver specialist who is following her and he recommended to discuss with other surgeons. I discussed with Dr. Vasquez, general surgeon who recommends to discuss
with colorectal surgery who is following her. I discussed with Dr. Hidalgo-and she does recommend to go ahead and do the CT scan with contrast otherwise call again if she would require surgery.
Refused CT scan as above. Follow-up clinically
Updated Janie yesterday, power of fat purification worker
PT OT
Pneumonia:
Started on Rocephin and azithromycin (QTc acceptable on EKG yesterday)
WBC 14.3-->11.9
Sputum culture pending
Pro-Yaakov 0.41
She follows up with pulmonary as outpatient but she wanted to see pulmonary here as inpatient. Pulmonary consulted.
Possible underlying COPD or reactive airway disease-inhaled steroids, monitor respiratory status, she is opposed to systemic steroids.
Ulcerative colitis status post proctocolectomy with ileostomy-stable
Lung cancer-status post left upper lobectomy in 2011
L Pleural effusion-status post thoracentesis in the past
Hyponatremia-sodium 132 today, improved from admission
Hyperglycemia-check hemoglobin A1c in a.m.
Hypothyroidism- cont thyroid replacement, TSH 0.87
Anxiety-started on scheduled/standing doses of IV Ativan. Discontinued IV Ativan. Added low-dose Xanax as needed
DVT prophylaxis-SCDs
CODE STATUS-Full code
Anticipated Discharge: 24 - 48 hours
Subjective/Interval History
-
Date of Service: November 11, 2023
Patient denies abdominal pain, less nausea although she attributes nausea to her respiratory symptoms. Less cough and shortness of breath. Afebrile
Objective Data
-
Labs:
Laboratory Results
11/11/23
07:19
WBC 11.9 H
Hgb 12.7
Hct 36.9 L
Plt Count 267
Sodium 132 L
Potassium 3.5
Chloride 101
Carbon Dioxide 21 L
BUN 20 H
Creatinine 0.7
Glucose 123 H
Calcium 9.1
Vital Signs:
Vital Signs
Temp Pulse Resp BP Pulse Ox
98.4 F 103 18 148/85 95
11/10/23 23:35 11/10/23 23:35 11/10/23 23:35 11/10/23 23:35 11/10/23 23:35
I&O
11/10/23 11/11/23 11/12/23
06:59 06:59 06:59
Intake Total 660 / 660
Output Total 300 / 300
Balance 660 / 660 -300 / -300
--- NOTE | 2023-11-11 09:17 | CON.PUL ---
Consultation
Consultation Request
Date/Time Consultation Requested: 11/11/2023-7:30 AM
Date/Time Consultation Performed: 11/11/2023-8 AM
Requesting Provider: Hospitalist
Performing Provider: Dr. Davalos
Reason for Consultation: Shortness of breath, pneumonia, history lung cancer
Medical History
-
Chief Complaint: Shortness of breath
History of Present Illness:
78-year-old female with a history of lung cancer/left upper lobectomy 2011 followed at [facility] without recurrence, recurrent left pleural effusion status post 2 thoracenteses in the past, bowel obstruction requiring colostomy with ileostomy secondary to
ulcerative colitis 1984 presented with abdominal pain and ileus, hyponatremia noted to have pneumonia and pulmonary was consulted 11/11/2023. She complains of some abdominal pain and pulmonary leon complains of some shortness of breath with
exertion, some mild chest congestion, discolored sputum, wheezing, no increased leg swelling, or focal weakness.
Past Medical History
Past Medical History: None (Lung cancer status post left upper lobectomy [facility] 2011-follows Bin Cee MD-[facility]. Former smoker-quit 1974. Recurrent bowel obstruction. Belgica's thyroiditis. Ulcerative colitis 1984 status post
proctocolectomy with ileostomy-[facility]. Tonsillectomy.)
Social History
Tobacco: Former Smoker (Quit 1974)
Alcohol: None
Drug: None
Occupational Exposures: No known asbestos exposure
Environmental Exposures: No known tuberculosis exposure
Family History
Family History: Other (Maternal great grandfather ulcerative colitis. Paternal cousins ulcerative colitis)
Allergies / Home Medications
Allergies
Allergy/AdvReac Type Severity Reaction Status Date / Time
Iodinated Contrast Media Allergy Unknown Verified 11/08/23 19:43
latex Allergy Unknown Verified 11/08/23 19:43
levofloxacin [From Levaquin] Allergy Unknown Verified 11/08/23 19:43
nickel Allergy Unknown Verified 11/08/23 19:43
Sulfa (Sulfonamide Allergy Unknown Verified 11/08/23 19:43
Antibiotics)
sulfamethoxazole Allergy Unknown Verified 11/08/23 19:43
[From Bactrim]
trimethoprim [From Bactrim] Allergy Unknown Verified 11/08/23 19:43
Home Medications
�Medication �Instructions �Recorded �Confirmed �Last Taken �Type
CoQ-10 1 tab PO DAILY Supplement 11/08/23 11/08/23 11/08/23 History
Mylanta 1 dose PO PRN PRN acid reflux 11/08/23 11/08/23 Unknown History
Tums 1 tab PO PRN PRN acid reflux 11/08/23 11/08/23 Unknown History
Vitamin D3 4,000 mcg PO DAILY Supplement 11/08/23 11/08/23 11/07/23 History
ascorbic acid (vitamin C) 500 mg 500 mg PO DAILY Supplement 11/08/23 11/08/23 11/07/23 History
tablet (Vitamin C)
levothyroxine 88 mcg tablet 68.5 mcg PO DAILY Thyroid 11/08/23 11/08/23 11/08/23 History
(Synthroid)
omega-3 fatty acids 1 cap PO DAILY 11/08/23 11/08/23 11/08/23 History
vitamin B complex 1 tab PO DAILY Supplement 11/08/23 11/08/23 11/07/23 History
Review of Systems
-
Unable to Obtain full review of systems at this time due to: Other (Per HPI)
Vitals / Labs / Diagnostic Testing
Vital Signs
Temp Pulse Resp BP Pulse Ox
98.6 F 106 18 147/83 95
11/11/23 07:50 11/11/23 07:50 11/11/23 07:50 11/11/23 07:50 11/11/23 07:50
Lab Data
11/11/23 07:19
11/11/23 07:19
Microbiology
11/10/23 11:54 Sputum Gram Stain - Preliminary
Diagnostic Testing:
Physical Exam
-
Exam:
Well-nourished and well-developed in no apparent distress
HEENT-atraumatic, normocephalic
Neck-supple, no JVD, no bruit
Heart-regular rate and rhythm-no murmurs, rubs or gallops
Chest with diminished breath sounds, prolonged expiratory time, expiratory wheezes and rhonchi with rare crackles
Abdomen-soft, mildly distended,
Extremities-no cyanosis, clubbing, edema and good peripheral pulses
Integument-intact, no rashes, lesions or ecchymosis
Neurology-alert and oriented, nonfocal motor and sensory exam
Assessment
-
78-year-old female with a history of lung cancer/left upper lobectomy 2011 followed at [facility] without recurrence, recurrent left pleural effusion status post 2 thoracenteses in the past, bowel obstruction requiring colostomy with ileostomy secondary to
ulcerative colitis 1984 presented with abdominal pain and ileus, hyponatremia noted to have pneumonia and pulmonary was consulted 11/11/2023.
Jbzjlwfya-brndvjwvd-enefajai
Leukocytosis-WBC 14.3
Mild hyponatremia
Mild hyperglycemia
Conditions present prior to admission:
Lung cancer status post left upper lobectomy [facility] 2011-follows Bin Cee MD-[facility].
Former smoker-quit 1974.
Recurrent bowel obstruction.
Belgica's thyroiditis.
Ulcerative colitis 1984 status post proctocolectomy with ileostomy-[facility].
Tonsillectomy.
Plan
Respiratory decompensation likely due to pneumonia and exacerbation of underlying reactive airway/obstructive lung disease-significant expiratory wheezing
Supplemental oxygen
Add nebulizers
Add inhaled steroids-states that she reacts 'psychologically' to steroids-explained that inhaled steroids have less than 2% systemic absorption and will be discontinued at for signs of adverse reaction
Aspiration precautions
Check cultures
Sputum culture pending
Ceftriaxone and azithromycin continue
Monitor leukocytosis
GI and surgery was following
Monitor ileus/partial small bowel obstruction
Replace electrolytes
DVT prophylaxis recommended-mechanical if refuses chemical
Nutrition per GI
Outpatient pulmonary cgxgir-xk-smpykco Dr. Bin GrewalOhyhbn-FRM-cafctvht CT chest every 2 years-last one March 2023
Expressed interest in following up locally with pulmonary-will leave name and number
Diagnostic data:
Obstruction series 11/08/2023-no acute cardiopulmonary process, ileus less likely small bowel obstruction
Chest x-ray 11/10/2023-pneumonia within the lingula and/or left lower lobe, small bilateral pleural effusions
Abdominal x-ray 11/09/2023-worsening ileus or developing small bowel obstruction
Data Reviewed
-
EKG: Report reviewed by me
Radiology: Report reviewed by me
Medical Tests (Nuc Med, Echo etc): Report reviewed by me
Old Records: Reviewed
Total Time Spent with Patient (in minutes): 55
[2023-11-11] MEDS: DUONEB 3 ML INH ×3 (11:37→20:08)
--- NOTE | 2023-11-11 12:02 | CM ---
Patient seen at bedside.
PT recommending home health.
CM discussed home health options of agencies.
Patient states will let CM know.
regulatory compliance manager to follow up on home health & place referral.
PLAN: Discharge when stable. PT recommeding home health.
[2023-11-11 15:34] VITALS: BP 150/77
[2023-11-11] MEDS: STERILE WATER FOR INJECTION 10 ML IV (15:44)
[2023-11-11] MEDS: ZITHROMAX INFUSION 250 IV (15:44)
[2023-11-11] MEDS: ROCEPHIN 1000 MG IV (15:44)
[2023-11-11] MEDS: TYLENOL 325 MG PO (16:01)
[2023-11-11] MEDS: PULMICORT 0.5 MG INH (20:08)
--- NOTE | 2023-11-11 20:24 | RESPNOTE ---
pt had a possible reaction to the pulmicort. RN aware. Providers will be told.
[2023-11-11 23:21] VITALS: BP 136/61
--- NOTE | 2023-11-12 03:20 | DOWNTIME ---
There was a [employer] Client Home Support Worker Downtime on 11/12/2023 from 0100 to 11/12/2023 at 0252. Downtime documentation of patient's care, including medication administrations, has been reconciled in the electronic record per guidelines. Refer to the
patient's paper chart under the miscellaneous tab to see printed paper medication records and downtime forms.
[2023-11-12 07:40] VITALS: BP 165/73
[2023-11-12] MEDS: PULMICORT 0.5 MG INH (07:44)
[2023-11-12] MEDS: DUONEB 3 ML INH ×3 (07:44→20:38)
[2023-11-12 08:39] LABS: Blood Urea Nitrogen 9 mg/dl (7-17); Calcium 8.7 mg/dl (8.4-10.2); Carbon Dioxide 19 mmol/L (22-30); Chloride 101 mmol/L (98-107); Estimated Creatinine Clearance 54 ml/min; Glucose 108 mg/dl (70-99); Potassium 3.7 mmol/L (3.5-5.1); Sodium 128 mmol/L (135-145); eGFR > 60.00
--- NOTE | 2023-11-12 08:59 | W.PN.PUL.V3 ---
Today's Communication / Plan
-
Wean oxygen
Mucolytic's
DuoNebs-if allows-'yet not sure if she has side effects'
Discontinue Pulmicort-does not like 'inhaled steroids'
Advance diet per gastroenterology
Assessment
-
78-year-old female with a history of lung cancer/left upper lobectomy 2011 followed at [facility] without recurrence, recurrent left pleural effusion status post 2 thoracenteses in the past, bowel obstruction requiring colostomy with ileostomy secondary to
ulcerative colitis 1984 presented with abdominal pain and ileus, hyponatremia noted to have pneumonia and pulmonary was consulted 11/11/2023.
Meewldvju-cykgxjpio-gecgkrdm
Obstructive lung disease with acute exacerbation
Leukocytosis-WBC 14.3
Mild hyponatremia
Mild hyperglycemia
Conditions present prior to admission:
Lung cancer status post left upper lobectomy [place] 2011-follows Bin Cee MD-[facility].
Former smoker-quit 1974.
Recurrent bowel obstruction.
Belgica's thyroiditis.
Ulcerative colitis 1984 status post proctocolectomy with ileostomy-[facility].
Tonsillectomy.
Plan
Respiratory decompensation likely due to pneumonia and exacerbation of underlying reactive airway/obstructive lung disease-significant expiratory wheezing
Supplemental oxygen-attempt to wean
Assess discharge supplemental oxygen needs prior to discharge
Pulmicort nebulizers-discontinue had reaction-unclear reaction as she could not definitively describe she just did not like it
Continue DuoNebs if she allows-clearly has bronchospasm on exam
Aspiration precautions
Follow radiographically
No need for CT chest at this time unless infiltrates do not clear over time-explained to patient at length
Cultures reviewed
Sputum culture Klebsiella
Ceftriaxone and azithromycin continue-finish finite course-reviewed with patient and nursing
Monitor leukocytosis
GI and surgery was following
Monitor ileus/partial small bowel obstruction
Diet advanced per gastroenterology
Replace electrolytes
DVT prophylaxis recommended-mechanical if refuses chemical
Nutrition per GI
Answered all questions, reviewed pathophysiology of bacterial pneumonia, level of contagiousness, length of therapy needed, follow-up needed, etc.
Reviewed with nursing
Outpatient pulmonary druiuj-xx-qxfwdsw Dr. Bin MorseP-receives CT chest every 2 years-last one March 2023
Diagnostic data:
Obstruction series 11/08/2023-no acute cardiopulmonary process, ileus less likely small bowel obstruction
Chest x-ray 11/10/2023-pneumonia within the lingula and/or left lower lobe, small bilateral pleural effusions
Abdominal x-ray 11/09/2023-worsening ileus or developing small bowel obstruction
Subjective Data
-
Date of Service:
Date of Service: November 12, 2023
Chief Complaint: Pulmonary Follow Up, Dyspnea Follow Up and Pneumonia Follow Up
Subjective:
Sputum color has improved-light yellow now, still has a cough, states she reacted to steroid nebulizer but not sure what it was, no chest pain, pleurisy, abdominal pain improved
Review of Systems
General: Other (Per HPI)
Objective Data
Data Reviewed
Vital Signs / I&O:
Vital Signs
Temp Pulse Resp BP Pulse Ox
98.6 F 79 18 165/73 94
11/12/23 07:40 11/12/23 07:47 11/12/23 07:47 11/12/23 07:40 11/12/23 07:47
Intake and Output
11/11/23 11/12/23 11/13/23
06:59 06:59 06:59
Intake Total 970 / 970
Output Total 300 / 300 1000 / 1000
Balance -300 / -300 -30 / -30
SaO2: 94
Nasal Cannula flow liters per minute: 3
Physical Exam
General: Respiratory Distress (n) and Comfortable
HEENT: Normocephalic, Anicteric and Moist Mucous Membranes
Cardiovascular: Regular Rhythm and Murmur
Respiratory: Wheeze (Expiratory), Crackles (Rare basilar), Rhonchi (n), Non-Labored Respirations, Accessory Resp Muscle Use (n) and Stridor (n)
GI: Soft, Non Distended and Non Tender
Neurology: Awake, Alert and No Motor Deficits
Skin: Warm, Good Color, Cyanosis (n), Jaundice (n) and Rash (n)
Labs/Micro/Reports
Lab Data
11/12/23 07:22
Microbiology
11/10/23 11:54 Sputum Respiratory Culture - Preliminary
Gram negative bacilli
11/10/23 11:54 Sputum Gram Stain - Preliminary
[2023-11-12 09:29] VITALS: BP 138/77; PULSE 105; O2SAT 97
[2023-11-12] MEDS: NON-FORMULARY ITEM PO (09:37)
--- NOTE | 2023-11-12 09:40 | PTCARENOTE ---
Patient was found taking own meds from her purse. RN explained to patient it is not safe. RN asked patient for her pill box and placed in in the patient's med drawer. Patient verbalized understanding that RN will give patient the prescribed
medications.
[2023-11-12 10:07] LABS: Glycohemoglobin (HgbA1c) 5.5 % (4.0-5.6)
--- NOTE | 2023-11-12 11:46 | PTCARENOTE ---
RN educated patient on the 1500 ml fluid restriction. RN explained about low sodium level. Patient states, 'I have an ileostomy. I need to drink extra fluid.'
[2023-11-12] MEDS: DUONEB INH (12:04)
--- NOTE | 2023-11-12 13:58 | W.PN.HOSP.TC ---
Today's Communication/Plan
-
Continue current care
Assessment / Plan
Assessment / Plan
General: Acute on chronically ill
HEENT: Normocephalic, Atraumatic and Moist Mucous Membranes
Respiratory: Decreased breath sounds bilateral; Bilateral scattered wheezes, few fine crackles in the bases, No rhonchi
Cardiac: Regular Rhythm and S1/S2
GI: Soft, bowel sounds present, Non-tender today, ostomy in place, and Nondistended
Musculoskeletal: No Clubbing, No Cyanosis and No Edema
Neuro: Awake, Alert and Oriented, no neuro-deficits
Psych: Calm
Ileus versus small bowel obstruction -improving. Moving bowels in ostomy. Tolerating low residue diet. Complaining of poor appetite.
Community-acquired pneumonia -symptoms improving. Chest x-ray suggestive of lingular and/or left lower lobe pneumonia. Small bilateral pleural effusions. Sputum culture shows Klebsiella. Anticipate discharging on Augmentin liquid. She complains
of difficulty swallowing tablets.
Possible underlying COPD or reactive airway disease -inhaled steroids, monitor respiratory status, she is opposed to systemic steroids.
Ulcerative colitis status post proctocolectomy with ileostomy -stable
Lung cancer -status post left upper lobectomy in 2011
Hyponatremia -sodium 128. Will check labs. TSH 0.87.
Hyperglycemia -hemoglobin A1c 5.5%.
Hypothyroidism - cont thyroid replacement, TSH 0.87
Anxiety -Xanax as needed.
Full code
Dispo -hopefully can discharge tomorrow if she remains stable. Patient refusing discharge today as she feels not ready for discharge.
Anticipated Discharge: Within 24 hours
Subjective/Interval History
-
Date of Service: November 12, 2023
Patient seen and examined. Complaining of weakness.
Objective Data
-
Labs:
Laboratory Results
11/12/23
07:22
WBC Pending
Hgb Pending
Hct Pending
Plt Count Pending
Sodium 128 L
Potassium 3.7
Chloride 101
Carbon Dioxide 19 L
BUN 9
Creatinine 0.6
Glucose 108 H
Calcium 8.7
Vital Signs:
Vital Signs
Temp Pulse Resp BP Pulse Ox
98.6 F 79 18 165/73 94
11/12/23 07:40 11/12/23 07:47 11/12/23 07:47 11/12/23 07:40 11/12/23 08:59
I&O
11/11/23 11/12/23 11/13/23
06:59 06:59 06:59
Intake Total 970 / 970
Output Total 300 / 300 1000 / 1000
Balance -300 / -300 -30 / -30
Review of Systems
-
History Source: Patient
All other systems: Reviewed and negative
[2023-11-12 15:00] VITALS: BP 144/75
[2023-11-12 15:13] LABS: Osmolality Serum 265 mOsm/kg (275-300)
[2023-11-12 15:30] VITALS: BP 144/75; PULSE 95; O2SAT 93
[2023-11-12] MEDS: ZITHROMAX INFUSION 250 IV (15:37)
[2023-11-12] MEDS: ROCEPHIN 1000 MG IV (15:37)
[2023-11-12] MEDS: STERILE WATER FOR INJECTION 10 ML IV (15:38)
[2023-11-12 15:50] LABS: Hematocrit 30.6 % (37.0-47.0); Hemoglobin 10.6 g/dL (12.0-16.0); Mean Corp Hgb Conc. 34.6 g/dL (33.0-37.0); Mean Corpuscular Hgb 29.9 pg (27.0-31.0); Mean Corpuscular Volume 86.2 fL (81.0-99.0); Mean Platelet Volume 11.9 fL (7.4-10.4); Platelet Count 206 10^3/uL (130-400); Red Blood Cell Count 3.55 10^6/uL (4.20-5.40); Red Cell Dist. Width 13.3 % (11.5-14.5); White Blood Cell Count 13.3 10^3/uL (4.8-10.8)
--- NOTE | 2023-11-12 16:00 | CM ---
Patient seen at bedside.
Expained in detail IMM form. Patient declined to sign.
Copy placed on chart.
Also discussed HH as recommended by PT.
Discussed options. Did not choose agency.
Will discuss tomorro.
PLAN: Discharge to home when stable. PT recommending HH
[2023-11-12 16:06] LABS: % Basophils 0.6 % (0-2); % Eosinophils 1.3 % (0-6); % Immature Granulocytes 1.7 % (0-0.5); % Lymphocytes 9.2 % (20.5-51.1); % Monocytes 7.1 % (1.7-9.3); % Neutrophils 80.1 % (42.2-75.2); Absolute Basophils 0.1 10^3/uL (0-0.2); Absolute Eosinophils 0.2 10^3/uL (0-0.7); Absolute Immature Granulocytes 0.2 10^3/uL (0-0.05); Absolute Lymphocytes 1.2 10^3/uL (1.2-3.4); Absolute Neutrophils 10.7 10^3/uL (1.4-6.5); Nucleated Red Blood Cells % 0 %
--- NOTE | 2023-11-12 16:42 | PTCARENOTE ---
Patient uncooperative at times. Patient refusing antibiotic unless it is mixed with saline. RN explained the antibiotics are already mixed. Patient states, 'The echometer engineer and hospitalist cannot agree on my antibiotics.' RN explained there is no
disagreement in regard to her antibiotics and no changes have been made. Patient now agreeing to antibiotics.
[2023-11-12 18:21] LABS: Osmolality Urine 245 mOsm/kg (300-900)
[2023-11-12 18:37] LABS: Urine Sodium 9 mmol/L (30-90)
[2023-11-12] MEDS: PULMICORT INH (20:38)
[2023-11-12 23:30] VITALS: BP 136/64
[2023-11-13] MEDS: ROBITUSSIN 200 MG PO ×2 (03:11→20:58)
[2023-11-13] MEDS: NON-FORMULARY ITEM 1 UNIT PO (06:42)
[2023-11-13] MEDS: PULMICORT 0.5 MG INH (08:20)
[2023-11-13] MEDS: DUONEB 3 ML INH ×3 (08:20→16:58)
--- NOTE | 2023-11-13 09:12 | PN.CDI ---
CDI
- -
CDI:
Physician Documentation Request
Admit Date: 11/08/23 22:12
Dear Doctor Eben,
11/11 progress note states 'Community-acquired pneumonia -symptoms improving. Sputum culture shows Klebsiella. Anticipate discharging on Augmentin liquid. She complains of difficulty swallowing tablets.'
Patient has received Zithromax and Rocephin IV
Based on the above, could you clarify in the Progress Notes further specificity regarding the known, suspected or likely type of pneumonia you are treating (recognizing the specific organism may not be known)?
Aspiration Pneumonia - indicate substance such as food or vomitus, oils or other solids or liquids
Strep Pneumonia - indicate if strep B, strep pneumoniae or other type
Gram negative Pneumonia - indicate if Pseudomonas, Klebsiella or other
Other organism - specify known or suspected type
Other type
Use of terms such as suspected, likely, concern for, or probable (associated with a specific diagnosis that is being evaluated, monitored, or treated as if it exists) are acceptable and can be coded in the inpatient setting, when documented at the
time of discharge.
Thank you,
Ijeoma Esteban RN, BSN
CDI Specialist
tiger text
Please use your independent medical judgment in providing your response.
[2023-11-13 09:35] VITALS: BP 135/67
--- NOTE | 2023-11-13 10:11 | W.PN.PUL.V3 ---
Today's Communication / Plan
-
Answered all her questions
Continue finite course of antibiotics
Discontinue budesonide
Continue DuoNebs
Robitussin twice daily
Outpatient pulmonary qzfjsl-ta-zyi sees [facility] docs
Assessment
-
78-year-old female with a history of lung cancer/left upper lobectomy 2011 followed at [facility] without recurrence, recurrent left pleural effusion status post 2 thoracenteses in the past, bowel obstruction requiring colostomy with ileostomy secondary to
ulcerative colitis 1984 presented with abdominal pain and ileus, hyponatremia noted to have pneumonia and pulmonary was consulted 11/11/2023.
Zkptjguud-lpcsseglc-kggexvpw
Obstructive lung disease with acute exacerbation
Leukocytosis-WBC 14.3
Mild hyponatremia
Mild hyperglycemia
Conditions present prior to admission:
Lung cancer status post left upper lobectomy [facility] 2011-follows Bin Cee MD-[facility].
Former smoker-quit 1974.
Recurrent bowel obstruction.
Belgica's thyroiditis.
Ulcerative colitis 1984 status post proctocolectomy with ileostomy-[facility].
Tonsillectomy.
Plan
Respiratory decompensation likely due to pneumonia and exacerbation of underlying reactive airway/obstructive lung disease-significant expiratory wheezing
Supplemental oxygen-attempt to wean
Assess discharge supplemental oxygen needs prior to discharge
Pulmicort nebulizers-discontinue had reaction-unclear reaction as she could not definitively describe she just did not like it-will discontinue at her request
Continue DuoNebs if she allows-clearly has bronchospasm on exam
Aspiration precautions
Follow radiographically
No need for CT chest at this time unless infiltrates do not clear over time-explained to patient at length
Cultures reviewed
Sputum culture Klebsiella
Ceftriaxone and azithromycin continue-finish finite course-reviewed with patient and nursing-5 days of azithromycin and 7-10 days Rocephin/oral equivalent-hospitalist note suggest changing to Augmentin
Monitor leukocytosis symptoms began
Symptoms began 24 hours after admission-explained to the patient I do not believe this is hospital-acquired Klebsiella pneumonia and more likely bowel jomar and related to her had small bowel obstruction
GI and surgery was following
Monitor ileus/partial small bowel obstruction
Diet advanced per gastroenterology
Replace electrolytes
DVT prophylaxis recommended-mechanical if refuses chemical
Nutrition per GI
Answered all questions, reviewed pathophysiology of bacterial pneumonia, level of contagiousness, length of therapy needed, follow-up needed, etc.
Reviewed with nursing
Outpatient pulmonary yftkqs-ty-aaqmonw Dr. Bin MorseP-receives CT chest every 2 years-last one March 2023
Diagnostic data:
Obstruction series 11/08/2023-no acute cardiopulmonary process, ileus less likely small bowel obstruction
Chest x-ray 11/10/2023-pneumonia within the lingula and/or left lower lobe, small bilateral pleural effusions
Abdominal x-ray 11/09/2023-worsening ileus or developing small bowel obstruction
Subjective Data
-
Date of Service:
Date of Service: November 13, 2023
Chief Complaint: Pulmonary Follow Up, Dyspnea Follow Up and Pneumonia Follow Up
Subjective:
Overall feels better, less short of breath, occasional mucus sustainability analyst in color and yellow, no chest pain, pleurisy, hemoptysis, abdominal pain, or increased leg swelling
Review of Systems
General: Other (Per HPI)
Objective Data
Data Reviewed
Vital Signs / I&O:
Vital Signs
Temp Pulse Resp BP Pulse Ox
99.3 F 119 20 135/67 93
11/13/23 09:35 11/13/23 09:35 11/13/23 09:35 11/13/23 09:35 11/13/23 09:35
Intake and Output
11/12/23 11/13/23 11/14/23
06:59 06:59 06:59
Intake Total 970 / 970 730 / 730
Output Total 1000 / 1000
Balance -30 / -30 730 / 730
SaO2: 93
Nasal Cannula flow liters per minute: 94
Physical Exam
General: Respiratory Distress (n) and Comfortable
HEENT: Normocephalic, Anicteric and Moist Mucous Membranes
Cardiovascular: Regular Rhythm and Murmur
Respiratory: Wheeze (Expiratory), Crackles (Rare basilar), Rhonchi (n), Non-Labored Respirations, Accessory Resp Muscle Use (n) and Stridor (n)
GI: Soft, Non Distended and Non Tender
Neurology: Awake, Alert and No Motor Deficits
Skin: Warm, Good Color, Cyanosis (n), Jaundice (n) and Rash (n)
Labs/Micro/Reports
Lab Data
11/12/23 07:22
11/12/23 07:22
Microbiology
11/10/23 11:54 Sputum Respiratory Culture - Final
Klebsiella pneumoniae
11/10/23 11:54 Sputum Gram Stain - Final
[2023-11-13 12:30] VITALS: O2SAT 92; O2SAT 95
--- NOTE | 2023-11-13 12:38 | W.PN.HOSP.TC ---
Addendum entered and electronically signed by Keon Treadwell DO 11/13/23 13:05:
Klebsiella CAP
Original Note:
Today's Communication/Plan
-
Await labs
Urinalysis
Assessment / Plan
Assessment / Plan
General: Acute on chronically ill
HEENT: Normocephalic, Atraumatic and Moist Mucous Membranes
Respiratory: Decreased breath sounds bilateral; Bilateral scattered wheezes, few fine crackles in the bases, No rhonchi
Cardiac: Regular Rhythm and S1/S2
GI: Soft, bowel sounds present, Non-tender today, ostomy in place, and Nondistended
Musculoskeletal: No Clubbing, No Cyanosis and No Edema
Neuro: Awake, Alert and Oriented, no neuro-deficits
Psych: Calm
Ileus versus small bowel obstruction -improving. Moving bowels in ostomy. Tolerating low residue diet.
Community-acquired pneumonia -symptoms improving. Chest x-ray suggestive of lingular and/or left lower lobe pneumonia. Small bilateral pleural effusions. Sputum culture shows Klebsiella. Anticipate discharging on Augmentin liquid. She complains
of difficulty swallowing tablets.
Pulse ox remained in the 92 to 98% range on ambulation today on room air. Discussed with nursing.
Dysuria - patient requesting UA, will order. Explained that her current antibiotics should cover UTI as well.
Possible underlying COPD or reactive airway disease -inhaled steroids, monitor respiratory status, she is opposed to systemic steroids.
Ulcerative colitis status post proctocolectomy with ileostomy -stable
Lung cancer -status post left upper lobectomy in 2011
Hyponatremia - TSH 0.87. BMP pending for today. Serum osm 265, urine osm 245, urine sodium 9. 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
Hyperglycemia -hemoglobin A1c 5.5%.
Hypothyroidism - cont thyroid replacement, TSH 0.87
Anxiety -Xanax as needed.
Full code
Dispo -offered to discharge her today but she refused and wants to be discharged tomorrow. Remains medically stable.
Anticipated Discharge: Within 24 hours
Subjective/Interval History
-
Date of Service: November 13, 2023
Patient seen/examined. Complaining of dysuria.
Objective Data
-
Labs:
Laboratory Results
11/13/23
12:22
WBC Pending
Hgb Pending
Hct Pending
Plt Count Pending
Sodium Pending
Potassium Pending
Chloride Pending
Carbon Dioxide Pending
BUN Pending
Creatinine Pending
Glucose Pending
Calcium Pending
Vital Signs:
Vital Signs
Temp Pulse Resp BP Pulse Ox
99.3 F 91 16 135/67 96
11/13/23 09:35 11/13/23 11:33 11/13/23 11:33 11/13/23 09:35 11/13/23 11:33
I&O
11/12/23 11/13/23 11/14/23
06:59 06:59 06:59
Intake Total 970 / 970 730 / 730
Output Total 1000 / 1000
Balance -30 / -30 730 / 730
Review of Systems
-
History Source: Patient
All other systems: Reviewed and negative
--- NOTE | 2023-11-13 13:03 | PTCARENOTE ---
Patient asked RN to confirm correct pharmacy ([facility] in [place]) is listed in her chart. RN conformed [facility] in [place] is listed as patient's pharmacy. Her requested a disc of her latest chest xry, RN called radiology department for disc of CXR.
Patient requesting a copy of medical records, release of medical records and medical records phone number given to patient.
[2023-11-13 13:17] LABS: Hematocrit 31.6 % (37.0-47.0); Mean Corp Hgb Conc. 34.8 g/dL (33.0-37.0); Mean Corpuscular Hgb 29.6 pg (27.0-31.0); Mean Corpuscular Volume 85.2 fL (81.0-99.0); Mean Platelet Volume 9.4 fL (7.4-10.4); Platelet Count 276 10^3/uL (130-400); Red Blood Cell Count 3.71 10^6/uL (4.20-5.40); Red Cell Dist. Width 13.1 % (11.5-14.5); White Blood Cell Count 16.4 10^3/uL (4.8-10.8)
[2023-11-13 13:36] LABS: Blood Urea Nitrogen 7 mg/dl (7-17); Calcium 8.8 mg/dl (8.4-10.2); Carbon Dioxide 27 mmol/L (22-30); Chloride 98 mmol/L (98-107); Estimated Creatinine Clearance 54 ml/min; Glucose 117 mg/dl (70-99); Potassium 3.3 mmol/L (3.5-5.1); Sodium 134 mmol/L (135-145); eGFR > 60.00
[2023-11-13 13:43] LABS: % Basophils 0.6 % (0-2); % Eosinophils 0.9 % (0-6); % Immature Granulocytes 5.3 % (0-0.5); % Lymphocytes 9.8 % (20.5-51.1); % Monocytes 8.4 % (1.7-9.3); Absolute Basophils 0.1 10^3/uL (0-0.2); Absolute Eosinophils 0.2 10^3/uL (0-0.7); Absolute Immature Granulocytes 0.9 10^3/uL (0-0.05); Absolute Lymphocytes 1.6 10^3/uL (1.2-3.4); Absolute Monocytes 1.4 10^3/uL (0.1-0.6); Absolute Neutrophils 12.3 10^3/uL (1.4-6.5); Nucleated Red Blood Cells % 0 %
[2023-11-13] MEDS: TUMS 2 TABLET PO ×2 (14:24→23:53)
[2023-11-13] MEDS: ZITHROMAX INFUSION 250 IV (14:24)
[2023-11-13] MEDS: TYLENOL SUSPENSION 320 MG PO ×2 (14:52→23:55)
[2023-11-13 16:00] LABS: Urine Albumin Trace (Neg - Trace); Urine Bilirubin Negative (Negative); Urine Character Clear (Clear); Urine Color Yellow; Urine Glucose Negative (Negative); Urine Ketone Negative (Negative); Urine Leukocyte 1+ (Negative); Urine Nitrite Negative (Negative); Urine Occult Blood 3+ (Negative); Urine Urobilinogen Negative (Neg - 1+)
--- NOTE | 2023-11-13 16:04 | VATNOTE ---
unsuccessful IV attempt x2 restart. Another VATRN notified.
[2023-11-13 16:22] LABS: Urine Amorphous Seen; Urine Bacteria Few (Negative)
--- NOTE | 2023-11-13 16:40 | PTCARENOTE ---
Patient continues to be difficult with every aspect of her care. Patient continues to criticize hospital staff. Patient states, 'I don't know why your IV nurses can't put in an IV. I have had a new one every day.' RN explained and shown patient that
the IV site was dated 11/10 and she has not needed her IV changed in 3 days. Patient's light string broke, Patient refused to have maintenance enter the room. RN explained that she cannot fix the light only maintenance can. Maintenance left and came
back, patient is now agreeable to maintenance entering her room. Patient states, 'I called medical records and they said my chart can be scanned on this floor.' RN explained that charts are only scanned in medical records. Patient states, 'Everyone
here tells me something different.
[2023-11-13 16:50] VITALS: BP 129/70
[2023-11-13 17:03] LABS: Magnesium 1.8 mg/dl (1.6-2.3)
--- NOTE | 2023-11-13 17:25 | CM ---
Patient explained & given IMM.
Declined to sign. CM to follow up.
PT recommend SNF vs. HH - declined SNF
Options previously given for HH agencies, will get back to CM.
PLAN: Discharge when stable to home. Possible home health.
[2023-11-13] MEDS: STERILE WATER FOR INJECTION 10 ML IV (17:32)
[2023-11-13] MEDS: KCL ELIXIR 40 MEQ PO (17:33)
[2023-11-13] MEDS: ROCEPHIN 1000 MG IV (17:33)
[2023-11-13] MEDS: DUONEB INH (19:45)
[2023-11-13 23:32] VITALS: BP 151/89
[2023-11-14 07:10] VITALS: BP 135/65
[2023-11-14] MEDS: NON-FORMULARY ITEM 1 UNIT PO (07:11)
[2023-11-14] MEDS: DUONEB 3 ML INH ×2 (07:30→11:22)
[2023-11-14 08:22] LABS: Hematocrit 31.7 % (37.0-47.0); Hemoglobin 11.2 g/dL (12.0-16.0); Mean Corp Hgb Conc. 35.3 g/dL (33.0-37.0); Mean Corpuscular Hgb 30.8 pg (27.0-31.0); Mean Corpuscular Volume 87.1 fL (81.0-99.0); Mean Platelet Volume 9.8 fL (7.4-10.4); Platelet Count 259 10^3/uL (130-400); Red Blood Cell Count 3.64 10^6/uL (4.20-5.40); White Blood Cell Count 18.6 10^3/uL (4.8-10.8)
--- NOTE | 2023-11-14 08:30 | PTCARENOTE ---
8:30 am Pt refused am vital signs, explain to pt reason to check vital signs. Pt mention will be discharge today. Explain to pt would need to check vital signs prior to discharge.
[2023-11-14 08:58] LABS: % Basophils 0.7 % (0-2); % Eosinophils 1.2 % (0-6); % Immature Granulocytes 7.6 % (0-0.5); % Lymphocytes 8.4 % (20.5-51.1); % Neutrophils 73.1 % (42.2-75.2); Absolute Basophils 0.1 10^3/uL (0-0.2); Absolute Eosinophils 0.2 10^3/uL (0-0.7); Absolute Immature Granulocytes 1.4 10^3/uL (0-0.05); Absolute Lymphocytes 1.6 10^3/uL (1.2-3.4); Absolute Monocytes 1.7 10^3/uL (0.1-0.6); Absolute Neutrophils 13.6 10^3/uL (1.4-6.5); Blood Urea Nitrogen 6 mg/dl (7-17); Calcium 9.1 mg/dl (8.4-10.2); Carbon Dioxide 29 mmol/L (22-30); Chloride 98 mmol/L (98-107); Estimated Creatinine Clearance 54 ml/min; Glucose 104 mg/dl (70-99); Nucleated Red Blood Cells % 0 %; Potassium 3.7 mmol/L (3.5-5.1); Sodium 135 mmol/L (135-145); eGFR > 60.00
[2023-11-14] MEDS: ROBITUSSIN PO (09:44)
[2023-11-14] MEDS: KCL ELIXIR 40 MEQ PO (09:45)
--- NOTE | 2023-11-14 09:55 | W.PN.PUL.V3 ---
Today's Communication / Plan
-
Finite course of antibiotics
Discharge on albuterol MDI and short course of antibiotics
Outpatient pulmonary follow-up with radiographs to ensure clearing-all these recommendations reviewed extensively with patient
She reports she routinely follows with outpatient junior copywriter
Assessment
-
78-year-old female with a history of lung cancer/left upper lobectomy 2011 followed at [facility] without recurrence, recurrent left pleural effusion status post 2 thoracenteses in the past, bowel obstruction requiring colostomy with ileostomy secondary to
ulcerative colitis 1984 presented with abdominal pain and ileus, hyponatremia noted to have pneumonia and pulmonary was consulted 11/11/2023.
Uzpeulsjv-ntamudoru-xdkoklrn
Obstructive lung disease with acute exacerbation
Leukocytosis-WBC 14.3
Mild hyponatremia
Mild hyperglycemia
Conditions present prior to admission:
Lung cancer status post left upper lobectomy [place] 2011-follows Bin Cee MD-[facility].
Former smoker-quit 1974.
Recurrent bowel obstruction.
Belgica's thyroiditis.
Ulcerative colitis 1984 status post proctocolectomy with ileostomy-[facility].
Tonsillectomy.
Plan
Respiratory decompensation likely due to pneumonia and exacerbation of underlying reactive airway/obstructive lung disease-significant expiratory wheezing on exam-improving
Supplemental oxygen-attempt to wean-currently on room air
Pulmicort nebulizers-discontinue had reaction-unclear reaction as she could not definitively describe she just did not like it-we discontinued at her request 11/13/2023
Continue DuoNebs if she allows-clearly has bronchospasm on exam-tolerating thus far
Aspiration precautions
Follow radiographically
No need for CT chest at this time unless infiltrates do not clear over time-explained to patient at length
Cultures reviewed
Sputum culture Klebsiella
Urine culture pending-suspect will be unrevealing as obtained several days after antibiotic initiation
Ceftriaxone and azithromycin continue-finish finite course-reviewed with patient and nursing-5 days of azithromycin and 7-10 days Rocephin/oral equivalent-hospitalist note suggest changing to Augmentin
Monitor leukocytosis symptoms began
Symptoms began 24 hours after admission-explained to the patient I do not believe this is hospital-acquired Klebsiella pneumonia and more likely bowel jomar and related to her had small bowel obstruction
GI and surgery was following
Monitor ileus/partial small bowel obstruction
Diet advanced per gastroenterology
Replace electrolytes
DVT prophylaxis recommended-mechanical if refuses chemical
Nutrition per GI
Once again Dr. Davalos answered all questions, reviewed pathophysiology of bacterial pneumonia, level of contagiousness, length of therapy needed, follow-up needed, etc.
Reviewed with nursing as well as primary team
Outpatient pulmonary zukddw-np-ebmebwb Dr. Bin CeeDvacqr-GAU-ozgtoads CT chest every 2 years-last one March 2023
Diagnostic data:
Obstruction series 11/08/2023-no acute cardiopulmonary process, ileus less likely small bowel obstruction
Chest x-ray 11/10/2023-pneumonia within the lingula and/or left lower lobe, small bilateral pleural effusions
Abdominal x-ray 11/09/2023-worsening ileus or developing small bowel obstruction
Subjective Data
-
Date of Service:
Date of Service: November 14, 2023
Chief Complaint: Pulmonary Follow Up, Dyspnea Follow Up and Pneumonia Follow Up
Subjective:
Overall feels better, less short of breath, less wheezy, decreased sputum production, light yellow, no chest pain or abdominal pain
Review of Systems
General: Other (Per HPI)
Objective Data
Data Reviewed
Vital Signs / I&O:
Vital Signs
Temp Pulse Resp BP Pulse Ox
98 F 89 18 135/65 97
11/14/23 07:10 11/14/23 07:33 11/14/23 07:33 11/14/23 07:10 11/14/23 07:33
Intake and Output
11/13/23 11/14/23 11/15/23
06:59 06:59 06:59
Intake Total 730 / 730 910 / 910
Balance 730 / 730 910 / 910
SaO2: 97
Nasal Cannula flow liters per minute: 94
Physical Exam
General: Respiratory Distress (n) and Comfortable
HEENT: Normocephalic, Anicteric and Moist Mucous Membranes
Cardiovascular: Regular Rhythm and Murmur
Respiratory: Wheeze (Expiratory), Crackles (Rare basilar), Rhonchi (n), Non-Labored Respirations, Accessory Resp Muscle Use (n) and Stridor (n)
GI: Soft, Non Distended and Non Tender
Neurology: Awake, Alert and No Motor Deficits
Skin: Warm, Good Color, Cyanosis (n), Jaundice (n) and Rash (n)
Labs/Micro/Reports
Lab Data
11/14/23 07:07
11/14/23 07:07
Microbiology
11/10/23 11:54 Sputum Respiratory Culture - Final
Klebsiella pneumoniae
11/10/23 11:54 Sputum Gram Stain - Final
--- NOTE | 2023-11-14 10:11 | W.PN.HOSP.TC ---
Today's Communication/Plan
-
Discharge
Assessment / Plan
Assessment / Plan
General: Acute on chronically ill
HEENT: Normocephalic, Atraumatic and Moist Mucous Membranes
Respiratory: Decreased breath sounds bilateral; Bilateral scattered wheezes, few fine crackles in the bases, No rhonchi
Cardiac: Regular Rhythm and S1/S2
GI: Soft, bowel sounds present, Non-tender today, ostomy in place, and Nondistended
Musculoskeletal: No Clubbing, No Cyanosis and No Edema
Neuro: Awake, Alert and Oriented, no neuro-deficits
Psych: Calm
Ileus versus small bowel obstruction -improving. Moving bowels in ostomy. Tolerating low residue diet.
Community-acquired pneumonia -symptoms improving. Chest x-ray suggestive of lingular and/or left lower lobe pneumonia. Small bilateral pleural effusions. Sputum culture shows Klebsiella. Anticipate discharging on Augmentin liquid. She complains
of difficulty swallowing tablets. Today is day 5 of azithromycin and ceftriaxone. Anticipate 2 more days of antibiotics on discharge.
Pulse ox remained in the 92 to 98% range on ambulation today on room air. Discussed with nursing. Asymptomatic leukocytosis noted. Afebrile. Follow-up with PCP.
Dysuria -urine culture pending. Urinalysis does not show significant pyuria but she is already on antibiotics.
Possible underlying COPD or reactive airway disease -inhaled steroids, monitor respiratory status, she is opposed to systemic steroids.
Ulcerative colitis status post proctocolectomy with ileostomy -stable
Lung cancer -status post left upper lobectomy in 2011
Hyponatremia - TSH 0.87. BMP pending for today. Serum osm 265, urine osm 245, urine sodium 9. 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 Sodium improved. Patient requesting removal of fluid restriction.
Hypokalemia -resolved.
Hyperglycemia -hemoglobin A1c 5.5%.
Hypothyroidism - cont thyroid replacement, TSH 0.87
Anxiety -Xanax as needed.
Full code
Dispo -medically stable for discharge home today. Outpatient follow-up recommended. I asked case management to provide information regarding VN/home PT. I asked respiratory therapy to provide spacer education for use with Proventil MDI.
35 minutes spent in discharge process.
Anticipated Discharge: Today
Subjective/Interval History
-
Date of Service: November 14, 2023
Patient seen and examined. No new complaints.
Objective Data
-
Labs:
Laboratory Results
11/14/23
07:07
WBC 18.6 H
Hgb 11.2 L
Hct 31.7 L
Plt Count 259
Sodium 135
Potassium 3.7
Chloride 98
Carbon Dioxide 29
BUN 6 L
Creatinine 0.6
Glucose 104 H
Calcium 9.1
Vital Signs:
Vital Signs
Temp Pulse Resp BP Pulse Ox
98 F 89 18 135/65 97
11/14/23 07:10 11/14/23 07:33 11/14/23 07:33 11/14/23 07:10 11/14/23 09:55
I&O
11/13/23 11/14/23 11/15/23
06:59 06:59 06:59
Intake Total 730 / 730 910 / 910
Balance 730 / 730 910 / 910
Review of Systems
-
History Source: Patient
All other systems: Reviewed and negative
--- NOTE | 2023-11-14 10:19 | W.DS.TRANS ---
DC Summary - Bender Hand
-
Discharge Instructions:
Discharge Diagnosis/Procedures Ileus, community-acquired pneumonia,
hyponatremia, hypokalemia
Diet Low Residue
Activity As tolerated
Driving Restrictions As prior to admission
Bathing Restrictions None
Instructions:
Stand-Alone Forms:
Changes to Home Medications: No
Discharge Medications:
DC Medications w/original date entered in [employer]
CoQ-10 1 tab PO DAILY Supplement 11/08/23
Mylanta 1 dose PO PRN PRN acid reflux 11/08/23
Tums 1 tab PO PRN PRN acid reflux 11/08/23
Vitamin D3 4,000 mcg PO DAILY Supplement 11/08/23
ascorbic acid (vitamin C) 500 mg tablet (Vitamin C) 500 mg PO DAILY Supplement 11/08/23
levothyroxine 88 mcg tablet (Synthroid) 68.5 mcg PO DAILY Thyroid 11/08/23
omega-3 fatty acids 1 cap PO DAILY 11/08/23
vitamin B complex 1 tab PO DAILY Supplement 11/08/23
albuterol sulfate 90 mcg/actuation aerosol inhaler 2 puff inhalation Q4H PRN shortness of breath or wheezing #8.5 grams 11/14/23
amoxicillin 250 mg-potassium clavulanate 62.5 mg/5 mL oral suspension 10 ml PO TID #75 mL 11/14/23
Home Medication Changes
Pending Results: No
[2023-11-14] MEDS: TYLENOL SUSPENSION 320 MG PO (11:39)
--- NOTE | 2023-11-14 11:39 | RESPNOTE ---
Addendum entered by Leydi Booth, RT 11/14/23 17:55:
pt educated on how to use MDI with a spacer and Acapella therapy as order by a physician.
Original Note:
pt declined education on how to use the spacer with MDI at this time stating i am not able to learn anything right now these need to wait till later.
[2023-11-14] MEDS: ZITHROMAX INFUSION 250 IV (12:54)
[2023-11-14] MEDS: STERILE WATER FOR INJECTION 10 ML IV (12:55)
[2023-11-14] MEDS: ROCEPHIN 1000 MG IV (12:55)
[2023-11-14] MEDS: TUMS 2 TABLET PO (14:15)
--- NOTE | 2023-11-14 15:28 | CM ---
Patient seen at bedside.
Explained IMM to patient. Patient verbalizes understanding of the IMM. Patient states can not sign as IV was infusing.
PT recommended home health.
Case management consult completed.
Options given again to the patient of home health agencies.
VN liaison contacted.
PLAN: Discharge home with home health.
States friend will transport home.
[2023-11-14] MEDS: DUONEB INH (15:33)
[2023-11-14] MEDS: STERILE WATER FOR INJECTION IV (15:42)
--- NOTE | 2023-11-14 16:00 | PTCARENOTE ---
1530 Pt refused to obtain 1500 vital signs. Pt mention to come back later. Pt discharge today and I explain to pt will need to obtain a set of vital signs prior to discharge. Pt agreed to obtain prior to discharge, continue to monitor pt.
--- NOTE | 2023-11-14 16:43 | VNURNOTE ---
Home Health Liaison met with patient at bedside to discuss therapy, visits, schedule and homebound status. Patient is agreeable for home PT, OT eval. No [place] [facility] facility needs identified. Long discussion with patient regarding homebound status, 's
rules regarding home health. VN brochure provided with contact information. Patient is aware that [facility] will contact them for start of care within a few days after discharge from .
[facility] referral completed in [facility].
[2023-11-14 17:00] VITALS: BP 136/70
[2023-11-14] MEDS: ROBITUSSIN 200 MG PO (18:01)
== END 2023-11-14 18:30 | disposition home health service (06) | DRG 388 ==
LOC: 4 WEST ACU 22:12
PROVIDERS: Clinical Nurse Specialist Family Health; Hospitalist; Nurse Practitioner Family; ADMITTING PHYSICIAN Internal Medicine; ATTENDING PHYSICIAN Hospitalist; CONSULT PHYSICIAN Internal Medicine Critical Care Medicine; CONSULT PHYSICIAN Internal Medicine Gastroenterology; EMERGENCY PHYSICIAN Emergency Medicine; FAMILY PHYSICIAN Internal Medicine; OTHER PHYSICIAN Surgery
DX: K56.7 Ileus, unspecified (principal); J15.0 Pneumonia due to Klebsiella pneumoniae; E87.1 Hypo-osmolality and hyponatremia; Z87.891 Personal history of nicotine dependence; K56.600 Partial intestinal obstruction, unspecified as to cause; F41.9 Anxiety disorder, unspecified; E86.1 Hypovolemia; E87.6 Hypokalemia; Z11.52 Encounter for screening for COVID-19
CPT/HCPCS: 71046; 74018; 74022; 80048; 80053; 81003; 81015; 83036; 83605; 83690; 83735; 83930; 83935; 84145; 84300; 84443; 85025; 87070; 87077; 87086; 87186; 87205; 87811; 93005; 94640; 96361; 96374; 96375; 97116; 97162; 97166; 97530; 97535; 99284

== ENCOUNTER → 2023-12-11 13:03 | Outpatient (REF) | payer MEDICARE, BC, SELFPAY | LOC: RAD 13:03 | PROVIDERS: ATTENDING PHYSICIAN Internal Medicine | DX: J18.9 Pneumonia, unspecified organism (principal) | CPT/HCPCS: 71046 ==

== ENCOUNTER → 2024-01-20 13:20 | Outpatient (REF) | payer MEDICARE, BC, SELFPAY | LOC: RAD 13:20 | PROVIDERS: ATTENDING PHYSICIAN Nurse Practitioner Adult Health; FAMILY PHYSICIAN Internal Medicine | DX: J15.0 Pneumonia due to Klebsiella pneumoniae (principal) | CPT/HCPCS: 71046 ==

== ENCOUNTER → 2024-03-31 08:24 | Outpatient (REF) | payer MEDICARE, BC, SELFPAY | LOC: WDC 08:24 | PROVIDERS: ATTENDING PHYSICIAN Obstetrics & Gynecology Gynecology; FAMILY PHYSICIAN Internal Medicine | DX: Z12.31 Encounter for screening mammogram for malignant neoplasm of breast (principal) | CPT/HCPCS: 77063; 77067 ==

== ENCOUNTER → 2024-04-02 09:28 | Outpatient (REF) | payer MEDICARE, BC, SELFPAY | LOC: WDC 09:28 | PROVIDERS: ATTENDING PHYSICIAN Obstetrics & Gynecology Gynecology; FAMILY PHYSICIAN Internal Medicine | DX: R92.8 Other abnormal and inconclusive findings on diagnostic imaging of breast (principal) | CPT/HCPCS: 76642 ==

== ENCOUNTER → 2024-04-13 07:59 | Outpatient (REF) | payer MEDICARE, BC, SELFPAY ==
--- NOTE | 2024-04-13 15:41 | OID.BR.INTR ---
[facility] Breast Navigator - Initial
- -
Date of Contact: 04/13/24
Met with patient. Patient stated at time of biopsy she would be seeking treatment if needed with outside breast surgeon and team. Available if she changes place for treatment.
== END ==
LOC: WDC 07:59
PROVIDERS: ATTENDING PHYSICIAN Obstetrics & Gynecology Gynecology; FAMILY PHYSICIAN Internal Medicine
DX: N63.11 Unspecified lump in the right breast, upper outer quadrant (principal)
CPT/HCPCS: 88305; 19083; 88341; 88342; 88360

== ENCOUNTER → 2024-06-07 08:50 | Outpatient (REF) | payer MEDICARE, BC, SELFPAY | LOC: RAD 08:50 | PROVIDERS: ATTENDING PHYSICIAN Surgery Surgical Oncology; FAMILY PHYSICIAN Internal Medicine; OTHER PHYSICIAN Internal Medicine Hematology & Oncology; REFERRING PHYSICIAN Radiology Radiation Oncology | DX: C50.811 Malignant neoplasm of overlapping sites of right female breast (principal); R74.8 Abnormal levels of other serum enzymes | CPT/HCPCS: 78306; A9503 ==

== ENCOUNTER → 2024-06-18 08:27 | Outpatient (REF) | payer MEDICARE, BC, SELFPAY | LOC: RAD 08:27 | PROVIDERS: ATTENDING PHYSICIAN Surgery Surgical Oncology; FAMILY PHYSICIAN Internal Medicine; OTHER PHYSICIAN Internal Medicine Hematology & Oncology; OTHER PHYSICIAN Radiology Radiation Oncology; REFERRING PHYSICIAN Internal Medicine Gastroenterology | DX: C50.811 Malignant neoplasm of overlapping sites of right female breast (principal); R74.8 Abnormal levels of other serum enzymes | CPT/HCPCS: 76700 ==

== ENCOUNTER → 2024-07-14 14:15 | Outpatient (REF) | payer MEDICARE, BC, SELFPAY | LOC: RAD 14:15 | PROVIDERS: ATTENDING PHYSICIAN Internal Medicine; FAMILY PHYSICIAN Internal Medicine | DX: R60.0 Localized edema (principal) | CPT/HCPCS: 93971 ==

== ENCOUNTER 2024-07-25 09:01 | Emergency (ER) | payer MEDICARE, BC, SELFPAY ==
[2024-07-25 09:02] VITALS: BP 148/72
[2024-07-25 09:33] VITALS: BMI 23.4
--- NOTE | 2024-07-25 10:39 | ED.GENMED ---
History of Present Illness
General
Chief Complaint: Skin Problem
Source: patient
Exam Limitations: none
Time Seen by Provider: 07/25/24 09:33
Nursing documentation reviewed up to this point in time: agreed with
History of Present Illness
History of Present Illness:
The patient is a 79-year-old female with a past medical history of multiple autoimmune conditions such as polymyopathy, antiphospholipid syndrome, 'sacral iliac inflammation and joint pain' and [place]'s thyroiditis who reports that she has been
experiencing swelling, rash, and burning pain in her right lower calf area for almost 2 months. Patient reports that it started out as a burning pain in her right calf area that presented as a bright red dot. Patient reports that she was not sure
if she could have been bitten by an insect. Patient reports that ever since then, she has had varying degrees of 'red dotty rash' and swelling to her right calf area. Patient recently underwent a DVT study of her right lower leg on July 14, 2024
which showed no DVT. Patient reports that over the last 1 to 2 days, she feels the swelling is slightly worse and the red dots to have gotten worse and are causing burning pain. Patient denies fever. Patient reports that she was recently treated
with amoxicillin for a ' jaw infection' after having recent dental surgery about 2 weeks ago. She finished the amoxicillin over 1 week ago. Patient reports that she has not had any fevers or chills. Patient denies a rash anywhere else other than
her right calf and foot area.
Past History
Past History
ED Past Medical History: Cancer (Right-sided breast cancer) and Other (Bowel obstruction, Hemorrhoids, Autoimmune issues, Polymyopathy, [place]'s thyroiditis, polymyopathy)
ED Past Surgical History: Bowel resection (Total proctocolectomy with Ileostomy), Gynecological (left duct incision (patient states that it was not a breast reduction and wants this removed from her chart)), Tonsilectomy (And adenoids) and Other
(Left upper lobectomy, Oral surgery. right breast lumpectomy for breast cancer)
Social History
Tobacco: Former smoker
Alcohol: None
Drug: Other
Personal: Other
Living: with family
Employment: Other
Family History
Family History: Other
Review of Systems
Review of Systems
Allergies reviewed?: Yes
All Other Systems: ROS reviewed and negative except as documented in HPI and ROS
Constitutional: Reports no symptoms
EENT: Reports no symptoms
Respiratory: Reports no symptoms
Cardiac: Reports no symptoms
ABD/GI: Reports no symptoms
: Reports no symptoms
Musculoskeletal: Reports edema (Right lower leg and foot)
Skin: Reports other (Burning, red dots rash)
Neurological: Reports no symptoms
Endocrine: Reports no symptoms
Hematologic/Lymphatic: Reports no symptoms
Psychiatric: Reports no symptoms
Phy Exam
Physical Exam
Physical Exam:
Physical Exam
General: no apparent distress, not acutely ill. Patient appears well, nontoxic, interactive
Neck: supple. no meningeal signs. normal psoterior pharynx
Heart: s1/s2 regular rate and rhythm, no murmur. equal radial pulses.
Lungs: no acute respiratory distress. clear bilaterally
Abdomen: normal bowel sounds. not tender. no CVAT
Neuro: alert and oriented. no focal neurological deficits
Skin: Vasculitis appearing rash of right lateral and anterior lower leg. Mild nonpitting edema of right lower leg and right foot. Strong pulses of bilateral feet. Full range of movement of right sided toes and ankle.
No areas of skin warmth or signs of cellulitis.
Psychiatric: well kept. interactive and cooperative
Extremities: Mild nonpitting edema of right lower extremity from right foot to mid right lower leg area. Strong pulses of bilateral feet.
Course
Vital Signs
Initial and Last Documented VS:
Initial Vital Signs
Pulse Resp BP Pulse Ox
79 16 148/72 100
07/25/24 09:02 07/25/24 09:02 07/25/24 09:02 07/25/24 09:02
Last Documented Vital Signs
Temp Pulse Resp BP Pulse Ox
98.4 F 79 16 148/72 100
07/25/24 10:02 07/25/24 09:02 07/25/24 09:02 07/25/24 09:02 07/25/24 09:02
MDM/Problems Addressed
Differential Diagnosis Includes:
Right lower extremity vasculitis, right lower extremity cellulitis, DVT
MDM/Problems Addressed:
Patient presents with subacute mild swelling and vasculitis appearing rash of right lower extremity
Chronic conditions affecting care:
Autoimmune disease
Acute Exacerbation and/or Progression of Chronic Illness:
Patient may have acute exacerbation of autoimmune disease
Acute Exacerbation and/or Progression of Chronic Illness: HTN (Patient is acutely hypertensive, I suspect this is from being anxious about her condition.)
*Radiology
Radiology exam reviewed: radiology read reviewed (Radiology report reviewed from DVT study from July 14, 2024)
*Pulse Oximetry
Patient hypoxic: no
*EKG
Interpreted by ED Provider?: NA
*Link Trainer Teacher Interpretation
Rate: Link Trainer Teacher- N/A
*Critical Care Note
Total Time (30-74mins, 75-104mins- exclusive of procedures): Not Applicable
Data Reviewed
Review of Other/Old Records Reveals: Radiology Studies (DVT study of right lower extremity reviewed from 07/14/2024 which shows no DVT)
Further Testing Considered But Not Given:
I encourage patient to get a complete blood cell count done as well as a CMP done. I felt it was important to check her white blood cell count in case of small possibility of infection. Additionally, I thought it was important to check her
platelet count to check for high platelets or low platelets. I also thought with her history of autoimmune disease, it would be important for me to check her renal function. However, patient adamantly does not want to because she states she is due
to have blood work in the next few days and will have all these test done. Patient also is concerned about cost of having blood work done in the ED. Given my very low concern for infection and acute renal failure, given how well and comfortable
the patient appears, I feel the blood work could wait a few days. I did tell the patient if she gets an infection, nausea, vomiting or any other concerns that she should come back immediately for emergent blood work.
It is unlikely that patient has a DVT given that she has had ongoing symptoms similar to this for almost 2 months and recently had a DVT study done less than 2 weeks ago which was negative.
I reached out by [place] [facility] multiple times and called the human projectile on-call, Dr. Cisco Riley, including pictures sent to him of the patient's rash and mild swelling. I was hoping to get some input from him, given he is a human projectile. However,
unfortunately he did not respond, as I also did try to call him without response. Patient appears extremely well and nontoxic and I do not feel her symptoms are emergent. However, I did tell her is important to follow-up with her primary care
doctor as well as rheumatology soon as possible.
Patient has excellent perfusion, strength, sensation, and neurovascular function of her bilateral lower extremities.
Patient Management
Social determinants of health affecting care: Living situation and Strong social support
ED Attending Note
-
Portions of this chart may have been created with voice recognition software.� Occasional wrong word or��sound alike� substitutions may have occurred due to the inherent limitations of voice recognition software.
Discharge Plan
Departure
Patient Disposition: Home (Routine Discharge)
Date of Disposition: 07/25/24
Time of Disposition: 11:08
Patient with high blood pressure during this ER visit?: Yes
Condition: Good
Covid-19: Not Applicable
Discharge Problem:
Vasculitis
Instructions: Vasculitis (DC), BLOOD PRESSURE
Prescriptions:
No Action
levothyroxine [Synthroid] 88 mcg Tablet
68.5 mcg PO DAILY
ascorbic acid (vitamin C) [Vitamin C] 500 mg Tablet
500 mg PO DAILY
omega-3 fatty acids Capsule
1 cap PO DAILY
CoQ-10
1 tab PO DAILY
Mylanta
1 dose PO PRN PRN (Reason: acid reflux )
Tums
1 tab PO PRN PRN (Reason: acid reflux )
Vitamin D3
4,000 mcg PO DAILY
vitamin B complex
1 tab PO DAILY
amoxicillin-pot clavulanate 250-62.5 mg/5 mL suspension for reconstitution
10 ml PO TID Qty: 75 0RF
albuterol sulfate 90 mcg/actuation HFA aerosol inhaler
2 puff inhalation Q4H PRN (Reason: shortness of breath or wheezing) Qty: 8.5 0RF
Rx Instructions:
use with spacer device
Referrals:
Dakotah Hines MD [Family Provider] -
Cisco Riley MD [Active] - (Call Friday to see as soon as possible)
Activity Restrictions/Additional Instructions:
Is very important that you return with any fever. It is that you have a complete blood count (CBC) and basic metabolic panel (BMP) done within 1 week to make sure that specifically your platelet count is normal, as well as to make sure your kidney
function is normal. Please keep your scheduled appointment to have your blood work done.
It is also helpful that you get seen by a human projectile soon as possible.
Interventions
Interventions:
*Risk Screen - Suicide Last Done: 07/25/24 09:02
*General Assessment Last Done: 07/25/24 09:02
*ED COVID-19 Vaccine History Last Done: 07/25/24 09:02
ED-Skin Assessment Last Done: 07/25/24 09:37
Discharge Date and Time
Print Language: HEBREW
[2024-07-25 11:05] VITALS: BP 145/62
== END 2024-07-25 11:27 | disposition home or self-care (01) ==
LOC: EMR 09:01
PROVIDERS: EMERGENCY PHYSICIAN Emergency Medicine; FAMILY PHYSICIAN Internal Medicine
DX: I77.6 Arteritis, unspecified (principal); E06.3 Autoimmune thyroiditis; Z87.891 Personal history of nicotine dependence; Z85.3 Personal history of malignant neoplasm of breast; Z87.19 Personal history of other diseases of the digestive system
CPT/HCPCS: 99282

== ENCOUNTER 2024-12-16 10:35 | Outpatient (RCR) | payer MEDICARE, BC, SELFPAY | END 2024-12-16 23:59 | disposition home or self-care (01) | LOC: RPT 10:35 | PROVIDERS: ATTENDING PHYSICIAN Family Medicine Geriatric Medicine; FAMILY PHYSICIAN Internal Medicine | DX: C50.111 Malignant neoplasm of central portion of right female breast (principal); M25.611 Stiffness of right shoulder, not elsewhere classified; Z73.6 Limitation of activities due to disability; M96.2 Postradiation kyphosis; N63.0 Unspecified lump in unspecified breast; R20.2 Paresthesia of skin; L90.5 Scar conditions and fibrosis of skin; Z85.118 Personal history of other malignant neoplasm of bronchus and lung | CPT/HCPCS: 97110; 97140; 97162; 97530 ==

== ENCOUNTER 2025-01-07 09:47 | Outpatient (RCR) | payer MEDICARE, BC, SELFPAY | END 2025-01-07 14:03 | disposition home or self-care (01) | LOC: RPT 09:47 | PROVIDERS: ATTENDING PHYSICIAN Family Medicine Geriatric Medicine; FAMILY PHYSICIAN Internal Medicine | DX: C50.111 Malignant neoplasm of central portion of right female breast (principal); M25.611 Stiffness of right shoulder, not elsewhere classified; Z73.6 Limitation of activities due to disability; M96.2 Postradiation kyphosis; N63.0 Unspecified lump in unspecified breast; R20.2 Paresthesia of skin; L90.5 Scar conditions and fibrosis of skin; Z85.118 Personal history of other malignant neoplasm of bronchus and lung | CPT/HCPCS: 97140; 97530 ==

== ENCOUNTER 2025-02-19 20:40 | Emergency (ER) | payer MEDICARE, BC, SELFPAY ==
[2025-02-19 20:45] VITALS: BP 111/88
[2025-02-19 22:09] VITALS: BMI 23.3
--- NOTE | 2025-02-19 22:11 | EDRN ---
Patient refusing any further vital signs at this time
[2025-02-19 22:15] LABS: Hematocrit 40.0 % (37.0-47.0); Hemoglobin 13.4 g/dL (12.0-16.0); Mean Corp Hgb Conc. 33.5 g/dL (33.0-37.0); Mean Corpuscular Volume 87.9 fL (81.0-99.0); Nucleated Red Blood Cells % 0 %; Platelet Count 251 10^3/uL (130-400); Red Cell Dist. Width 13.3 % (11.5-14.5)
[2025-02-19 22:39] LABS: ALT (SGPT) 36 U/L (0-35); AST (SGOT) 31 U/L (14-36); Albumin 4.2 g/dl (3.5-5.0); Alkaline Phosphatase 144 U/L (38-126); Blood Urea Nitrogen 17 mg/dl (7-17); Calcium 10.3 mg/dl (8.4-10.2); Carbon Dioxide 27 mmol/L (22-30); Chloride 99 mmol/L (98-107); Estimated Creatinine Clearance 48 ml/min; Glucose 123 mg/dl (70-99); Potassium 4.3 mmol/L (3.5-5.1); Sodium 131 mmol/L (135-145); Total Protein 8.5 g/dl (6.3-8.2); eGFR > 60.00
[2025-02-19] MEDS: NSS 1000 IV (23:46)
[2025-02-19] MEDS: ZOFRAN 4 MG IV (23:48)
[2025-02-19] MEDS: PROTONIX IV 40 MG IV (23:49)
--- NOTE | 2025-02-19 23:51 | ED.GENMED ---
History of Present Illness
<Gordon Stubbs MD, Resident - Last Filed: 02/20/25 00:30>
General
Chief Complaint: Abdominal Symptoms
Time Seen by Provider: 02/19/25 22:23
History of Present Illness
History of Present Illness:
Patient is a 79-year-old female with recurrent bowel obstructions, who is here for evaluation of epigastric pain, acid reflux and dry heaves.
She has had previous history of bowel obstructions requiring colectomy with ileostomy in 1984 secondary to ulcerative colitis surgery at [facility]. She follows up with Dr. Espinosa.
Yesterday, she had what she describes as a bowel obstruction, that self resolved and then she tried to eat but she had nausea, acid reflux, burning in the epigastric region and she came here to the ER for IV fluids and basic suppression medications.
She denies any other symptoms.
<Zana Gary DO - Last Filed: 02/20/25 03:16>
General
Source: patient and family
Exam Limitations: none
Nursing documentation reviewed up to this point in time: agreed with
Past History
<Gordon Stubbs MD, Resident - Last Filed: 02/20/25 00:30>
Past History
ED Past Medical History: Cancer (Right-sided breast cancer) and Other (Bowel obstruction, Hemorrhoids, Autoimmune issues, Polymyopathy, [place]'s thyroiditis, polymyopathy)
ED Past Surgical History: Bowel resection (Total proctocolectomy with Ileostomy), Gynecological (left duct incision (patient states that it was not a breast reduction and wants this removed from her chart)), Tonsilectomy (And adenoids) and Other
(Left upper lobectomy, Oral surgery. right breast lumpectomy for breast cancer)
Social History
Tobacco: Former smoker
Alcohol: None
Drug: Other
Personal: Other
Living: with family
Employment: Other
Family History
Family History: Other
Review of Systems
<Gordon Stubbs MD, Resident - Last Filed: 02/20/25 00:30>
Review of Systems
Unable to obtain full review of systems at this time due to: other (Patient not willing to answer)
Phy Exam
<Gordon Stubbs MD, Resident - Last Filed: 02/20/25 00:30>
Physical Exam
Physical Exam:
unable t obtain
Course
<Gordon Stubbs MD, Resident - Last Filed: 02/20/25 00:30>
Orders/Labs/Results
Orders:
Orders
02/19/25 22:04
Complete Blood Count/With Diff Urgent
Comprehensive Metabolic Panel Urgent
02/19/25 23:38
0.9% Sodium Chloride 1000 ml [Nss] 1,000 ml IV BOLUS
02/19/25 23:39
Ondansetron Injectable [Zofran] 4 mg IV NOW ONE
02/19/25 23:40
Pantoprazole [Protonix IV] 40 mg IV NOW ONE
02/20/25 00:07
Lorazepam [Ativan] 0.5 mg PO NOW ONE
Obstruct Series W/PA Chest [CR Obstruct Series W/pa Chest] Urgent
Comment:
Reason For Exam: abdominal pain
Abnormal Lab Results
02/19/25
22:04
WBC 13.2 H 10^3/uL
(4.8-10.8)
Absolute Neuts (auto) 11.7 H 10^3/uL
(1.4-6.5)
Absolute Lymphs (auto) 0.7 L 10^3/uL
(1.2-3.4)
Absolute Monos (auto) 0.8 H 10^3/uL
(0.1-0.6)
Neutrophils % 88.2 H %
(42.2-75.2)
Lymphocytes % 5.5 L %
(20.5-51.1)
Sodium 131 L mmol/L
(135-145)
Glucose 123 H mg/dl
(70-99)
Calcium 10.3 H mg/dl
(8.4-10.2)
Total Bilirubin 1.6 H mg/dl
(0.2-1.3)
ALT 36 H U/L
(0-35)
Alkaline Phosphatase 144 H U/L
(38-126)
Total Protein 8.5 H g/dl
(6.3-8.2)
02/19/25 22:04
02/19/25 22:04
Vital Signs
Initial and Last Documented VS:
Initial Vital Signs
Temp Pulse Resp BP Pulse Ox
98.7 F 114 16 111/88 99
02/19/25 20:45 02/19/25 20:45 02/19/25 20:45 02/19/25 20:45 02/19/25 20:45
Last Documented Vital Signs
Temp Pulse Resp BP Pulse Ox
98.7 F 114 18 144/64 96
02/19/25 20:45 02/19/25 20:45 02/20/25 00:53 02/20/25 00:53 02/20/25 00:53
Bryantlt;Zana Gary, DO - Last Filed: 02/20/25 03:16>
Orders/Labs/Results
Orders:
Orders
02/19/25 22:04
Complete Blood Count/With Diff Urgent
Comprehensive Metabolic Panel Urgent
02/19/25 23:38
0.9% Sodium Chloride 1000 ml [Nss] 1,000 ml IV BOLUS
02/19/25 23:39
Ondansetron Injectable [Zofran] 4 mg IV NOW ONE
02/19/25 23:40
Pantoprazole [Protonix IV] 40 mg IV NOW ONE
02/20/25 00:07
Lorazepam [Ativan] 0.5 mg PO NOW ONE
Obstruct Series W/PA Chest [CR Obstruct Series W/pa Chest] Urgent
Comment:
Reason For Exam: abdominal pain
Abnormal Lab Results
02/19/25
22:04
WBC 13.2 H 10^3/uL
(4.8-10.8)
Absolute Neuts (auto) 11.7 H 10^3/uL
(1.4-6.5)
Absolute Lymphs (auto) 0.7 L 10^3/uL
(1.2-3.4)
Absolute Monos (auto) 0.8 H 10^3/uL
(0.1-0.6)
Neutrophils % 88.2 H %
(42.2-75.2)
Lymphocytes % 5.5 L %
(20.5-51.1)
Sodium 131 L mmol/L
(135-145)
Glucose 123 H mg/dl
(70-99)
Calcium 10.3 H mg/dl
(8.4-10.2)
Total Bilirubin 1.6 H mg/dl
(0.2-1.3)
ALT 36 H U/L
(0-35)
Alkaline Phosphatase 144 H U/L
(38-126)
Total Protein 8.5 H g/dl
(6.3-8.2)
02/19/25 22:04
02/19/25 22:04
Vital Signs
Initial and Last Documented VS:
Initial Vital Signs
Temp Pulse Resp BP Pulse Ox
98.7 F 114 16 111/88 99
02/19/25 20:45 02/19/25 20:45 02/19/25 20:45 02/19/25 20:45 02/19/25 20:45
Last Documented Vital Signs
Temp Pulse Resp BP Pulse Ox
98.7 F 114 18 144/64 96
02/19/25 20:45 02/19/25 20:45 02/20/25 00:53 02/20/25 00:53 02/20/25 00:53
<Gordon Stubbs MD, Resident - Last Filed: 02/20/25 00:30>
MDM/Problems Addressed
Differential Diagnosis Includes:
Small bowel obstruction
Gastritis/GERD
MDM/Problems Addressed:
Patient stated that she does not want to go n.p.o. and she also refused CT scan of the abdomen.
She said she wants IV fluids, something for her nausea and acid reflux.
She refused to talk to me and wanted me to convey information to the attending and to let her have her IV medications.
<Gordon Stubbs MD, Resident - Last Filed: 02/20/25 00:30>
*Pulse Oximetry
SaO2: 99
Oxygen Mode of Delivery: Room air
Patient hypoxic: no
*Critical Care Note
Total Time (30-74mins, 75-104mins- exclusive of procedures): Not Applicable
ED Attending Note
<Gordon Stubbs MD, Resident - Last Filed: 02/20/25 00:30>
-
Portions of this chart may have been created with voice recognition software.� Occasional wrong word or��sound alike� substitutions may have occurred due to the inherent limitations of voice recognition software.
<Zana Gary, - Last Filed: 02/20/25 03:16>
ED Attending Note
Patient seen and examined by attending physician: Yes
I performed a history and physical exam of patient and discussed management with resident, I reviewed resident's note and agree with documented findings and plan of care.: Yes
ED Attending Note:
Note:
CHIEF COMPLAINT(S)
Abdominal pain, nausea, vomiting, and concern for bowel obstruction.
HISTORY OF PRESENT ILLNESS
The patient is a 79-year-old female with a history of having an ileostomy for 40 years due to past medical conditions, and she reports experiencing over 100 bowel obstructions during this period. Yesterday, the patient experienced a bowel
obstruction that has since cleared, evidenced by the return of stool output. The patient describes significant abdominal burning and acid reflux, with persistent nausea and vomiting, despite the obstruction clearing. She reports inadequate fluid
intake, which she identifies as a risk given her ileostomy. Last night, the patient experienced a syncopal episode characterized by passing out while seated, attributed to hypotension commonly associated with her bowel obstructions. During the
episode, she fell onto a carpet, twisting her neck on a solid cart but denied any head impact of concern. The patient experiences anxiety-induced tremors, which she describes as intense shaking, especially in the emergency room setting. Currently,
she reports headaches and fatigue but attributes these to anxiety. She expresses familiarity with her condition and mentions that early initiation of food, such as scrambled eggs, typically aids her recovery and helps maintain strength.
The patient also mentioned recent completion of a radiation therapy course for breast cancer and expressed reluctance to undergo further significant radiation exposure, although she consented to an obstruction series to assess her current status.
She inquired about the necessity of hospital admission and is skeptical about the benefit given her current improvement and the flow of bowel content.
PAST SURGICAL HISTORY
Ileostomy performed 40 years ago.
EXTERNAL RECORDS REVIEWED
The patient reports completing a course of radiation therapy for breast cancer, indicating external cancer treatment records.
CHRONIC MEDICAL CONDITIONS SIGNIFICANTLY AFFECTING CARE
- Ileostomy with recurrent bowel obstructions
- History of breast cancer, recently treated with radiation therapy
REVIEW OF SYSTEMS
- Gastrointestinal: Abdominal burning, nausea, and vomiting.
- Neurological: Reports of headaches, shaking of extremities related to anxiety.
- Cardiovascular: Episode of passing out attributed to hypotension.
PHYSICAL EXAM
General: Alert, no acute distress at time of exam, patient states that symptoms had resolved
Skin: Warm, dry.
Head: Normocephalic, atraumatic.
Neck: Supple, trachea midline.
Eye Ears, Nose, Mouth, and Throat: Oral mucosa moist.
Cardiovascular: Normal peripheral perfusion, No edema.
Respiratory: Respirations are non-labored.
Gastrointestinal: Abdomen nondistended, bowel sounds present. Colostomy bag present filled with semiformed stool which patient states is normal
Back: Normal range of motion, normal alignment.
Musculoskeletal: Normal range of motion, normal strength.
Neurological: Alert and oriented to person, place, time, and situation, No focal neurological deficit observed.
Psychiatric: Cooperative, appropriate mood & affect.
PLAN
1. Administer intravenous fluids for rehydration.
2. Order an obstruction series to assess current bowel obstruction status.
3. Prescribe medication to address nausea and anxiety, considering the patients preference and history of medication effects.
4. Monitor patient post-fluid administration and reassess the necessity of hospital admission prior to discharge.
DIFFERENTIAL DIAGNOSIS
The Differential Diagnosis includes, in no particular order and is not limited to:
1. Bowel obstruction
2. Ileostomy complications
3. Dehydration
4. Anxiety-related syncope
5. Gastritis or peptic ulcer disease
6. Electrolyte imbalance
7. Radiation enteritis
8. Functional bowel disorder
9. Acute gastroenteritis
10. Medication-induced gastrointestinal symptoms
Disposition:
SUMMARY OF ENCOUNTER
The patient, a 79-year-old female with a history of recurrent bowel obstructions and an ileostomy, presented to the emergency department after experiencing symptoms of a bowel obstruction that resolved. She reported passing stools and relief from
her obstruction. She received intravenous fluids for rehydration, and an obstruction series was conducted, which did not reveal any signs of an obstruction. Despite being offered a CT scan to further evaluate her condition, the patient declined. Her
condition had improved, and she felt stable for discharge.
DISPOSITION
Discharge.
ASSESSMENT
The patient likely experienced a bowel obstruction that resolved spontaneously. Her symptoms have improved, and current imaging indicates no signs of obstruction.
EMERGENCY TREATMENTS ADMINISTERED
Intravenous fluids were administered to address dehydration potentially related to the ileostomy and recent bowel obstruction.
PLAN
1. Discharge the patient with instructions on monitoring fluid intake to prevent dehydration, especially given her ileostomy.
2. Encourage early initiation of a light diet, as tolerated, to enhance recovery and maintain strength.
3. Recommend following up with her primary care physician to ensure continued recovery and for any further management adjustments if needed.
MEDICATION RECONCILIATION
No new prescriptions were given at discharge.
MEDICAL DECISION MAKING
- Number and Complexity of Problems Addressed: Chronic conditions affecting care include ileostomy with recurrent bowel obstructions and recent treatment for breast cancer. Differential diagnosis includes:
1. Bowel obstruction
2. Ileostomy complications
3. Dehydration
4. Anxiety-related syncope
5. Gastritis or peptic ulcer disease
6. Electrolyte imbalance
7. Radiation enteritis
8. Functional bowel disorder
9. Acute gastroenteritis
10. Medication-induced gastrointestinal symptoms
- Data:
Category 1:
- External record reviewed includes the patient�s history of radiation therapy for breast cancer.
- The obstruction series was reviewed, showing no current bowel obstruction.
Category 3:
- The patient discussed her management plan with emergency department staff, leading to the decision to discharge.
- Risk:
Consideration of admission/observation: Escalation of care, including admission/observation, was considered given the complexity and risk of the patients presenting complaint, exam findings, and underlying comorbidities. However, ultimately I feel
the patient is safe for outpatient management with close follow-up. Reasoning: The work-up was reassuring, does not reveal any acute life/organ-threatening processes; the patients symptoms are well-controlled upon reevaluation; reexamination is
reassuring; vitals are stable; the patient agrees with discharge and is reliable for follow-up.
DIAGNOSIS
1. Bowel Obstruction, Resolved - K56.60
2. Dehydration - E86.0
3. Anxiety-related syncope - R55
Discharge Plan
Departure
Patient Disposition: Home (Routine Discharge)
Date of Disposition: 02/20/25
Time of Disposition: 01:47
Patient with high blood pressure during this ER visit?: Yes
Condition: Good
Discharge Problem:
Abdominal pain, Ileus
Instructions: Small bowel obstruction (DC), Abdominal Pain, BLOOD PRESSURE
Prescriptions:
No Action
levothyroxine [Synthroid] 88 mcg Tablet
68.5 mcg PO DAILY
ascorbic acid (vitamin C) [Vitamin C] 500 mg Tablet
500 mg PO DAILY
omega-3 fatty acids Capsule
1 cap PO DAILY
CoQ-10
1 tab PO DAILY
Mylanta
1 dose PO PRN PRN (Reason: acid reflux )
Tums
1 tab PO PRN PRN (Reason: acid reflux )
Vitamin D3
4,000 mcg PO DAILY
vitamin B complex
1 tab PO DAILY
amoxicillin-pot clavulanate 250-62.5 mg/5 mL suspension for reconstitution
10 ml PO TID Qty: 75 0RF
albuterol sulfate 90 mcg/actuation HFA aerosol inhaler
2 puff inhalation Q4H PRN (Reason: shortness of breath or wheezing) Qty: 8.5 0RF
Rx Instructions:
use with spacer device
Referrals:
Dakotah Hines MD [Family Provider, Internal Medicine]
Interventions
Interventions:
*Risk Screen - Suicide Last Done: 02/19/25 20:45
*General Assessment Last Done: 02/19/25 22:09
*Neglect/Abuse Screening Last Done: 02/19/25 20:45
*ED- Fall Risk Assessment Last Done: 02/19/25 22:09
*ED COVID-19 Vaccine History Last Done: 02/19/25 22:09
*ED Influenza Vaccine History Last Done: 02/19/25 22:09
*Nursing Disposition Last Done: 02/20/25 01:58
XR-Gwfatr-Wuondyqvoa Assessment Last Done: 02/19/25 23:31
Discharge Date and Time
Discharge Date/Time: 02/20/25 02:04
Print Language: [place]
[2025-02-20] MEDS: ATIVAN 0.5 MG PO (00:30)
[2025-02-20 00:53] VITALS: BP 144/64
== END 2025-02-20 02:04 | disposition home or self-care (01) ==
LOC: EMR 20:40
PROVIDERS: Emergency Medicine; EMERGENCY PHYSICIAN Student in an Organized Health Care Education/Training Program; FAMILY PHYSICIAN Internal Medicine
DX: K56.7 Ileus, unspecified (principal); E06.3 Autoimmune thyroiditis; E86.0 Dehydration; K21.9 Gastro-esophageal reflux disease without esophagitis; C50.919 Malignant neoplasm of unspecified site of unspecified female breast; Z87.891 Personal history of nicotine dependence; Z92.3 Personal history of irradiation; Z93.2 Ileostomy status; Z90.49 Acquired absence of other specified parts of digestive tract; Z87.19 Personal history of other diseases of the digestive system
CPT/HCPCS: 96374; 96375; 96361; 99284; 74022; 80053; 85025